=== PATIENT | male | born 1965 | race Caucasian/White ===

== ENCOUNTER → 2020-12-05 07:57 | Outpatient (BNVA) | payer BC, SELFPAY | PROVIDERS: PCP Internal Medicine; Visit Provider Physician Assistant ==

== ENCOUNTER 2021-01-11 09:49 | Day surgery (SDC) | payer BC, SELFPAY ==
[2021-01-04 15:05] VITALS: BMI 29.7
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
[2021-01-11 10:00] VITALS: BP 131/91; PULSE 82; RESP 16; TEMP 36.6; O2SAT 98
[2021-01-11] MEDS: Lactated Ringers 1,000 ML 100 ML IVCONT (10:18)
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
[2021-01-11 11:06] VITALS: BP 118/74; PULSE 75; RESP 16; TEMP 36.1; O2SAT 96
[2021-01-11 11:22] VITALS: BP 133/98; PULSE 74; RESP 18; TEMP 36.1; O2SAT 100
--- NOTE | 2021-01-12 13:04 | W.PM.OPN ---
Operative Note Operative Note Date of Service: 01/11/21 Narrative: Pre-op diagnosis: colon cancer screening, hx of colon polyps, FH of colon polyps Post-op diagnosis: other (Colon polyps, diverticulosis, hemorrhoids) Procedure: COLONOSCOPY TILL CECUM WITH SNARE POLYPECTOMY AND SUBMUCOSAL INJECTION Consent: Indications for the procedure and potential complications of bleeding, perforation, reaction to medications and missed diagnosis were discussed with the patient and informed consent was obtained. Instrument: Olympus PCF H 190 L variable stiffness pediatric colonoscope Monitoring: Vital signs and clinical assessment, intermittent blood pressure monitoring, continuous EKG monitoring, Pulse oximetry and Carbon Dioxide monitoring were done throughout the procedure. Colon withdrawl time was 18 minutes. Procedure: The patient was placed in the left lateral decubitis position and pre-procedure medications were administered. After a digital rectal examination of the ano-rectum, the video colonoscope was inserted into the rectum and advanced through the colon to the cecum. The colonoscope was slowly withdrawn in a retrograde panoramic fashion and the colon mucosa was carefully examined including a retroflexed view of the rectum. Findings and interventions are described below. Procedure Difficulty: Without difficulty Findings: Terminal Ileum: Not evaluated Cecum: A 15-18 mm flat polyp in the cecum below the appendicular orifice. Polyp was raised with 7 cc of Orise solution and removed with a hot snare. Ascending Colon: Normal Transverse Colon: Normal Descending Colon: Moderate diverticulosis Sigmoid Colon: A 7-8 mm sessile polyp removed with a cold snare and polyp was not retrieved. Moderate diverticulosis Rectum: Normal Ano-rectum: Moderate internal hemorrhoids Colon preparation: Good Impression and Post Procedure Diagnosis: Colonoscopy Findings: Two small to medium sized polyps removed - one polyp was not retrieved. Moderate diverticulosis seen in the left colon Moderate hemorrhoids on retroflexed exam. Plan: Await pathology results Patient has an appointment on 02/21/21 in the GI Clinic with FERMÍN Maldonado. Repeat Colonoscopy interval based on path results - in 2 years if cecal polyp is adenomatous. Above findings were reviewed with the patient and colon polyps handoutwas given in the discharge area Surgeon: Delmi Cagle MD Anesthesia: MAC (Dr Davies) Was an Mounted Police Officer used for this Procedure?: Yes Mounted Police Officer: Dequan Blake Estimated blood loss (mL): 0 Pathology: other (A- CECAL POLYP O-RISE USED) Condition: stable Disposition: PACU
== END 2021-01-11 11:47 | disposition home or self-care (01) ==
PROVIDERS: PCP Internal Medicine; Visit Provider Internal Medicine Gastroenterology
PROC: 0DJD8ZZ Inspection of Lower Intestinal Tract, Via Natural or Artificial Opening Endoscopic (ICD-10-PCS; CPT 45378; principal; 2021-01-11 11:10)
DX: Z12.11 Encounter for screening for malignant neoplasm of colon (principal); Z86.010 Personal history of colon polyps; Z83.71 Family history of colonic polyps; D12.0 Benign neoplasm of cecum; K57.30 Diverticulosis of large intestine without perforation or abscess without bleeding; K64.8 Other hemorrhoids; G47.33 Obstructive sleep apnea (adult) (pediatric); Z79.899 Other long term (current) drug therapy; Z88.8 Allergy status to other drugs, medicaments and biological substances; K63.5 Polyp of colon
CPT/HCPCS: 45385; 45381; 88305

== ENCOUNTER → 2021-02-21 08:57 | Outpatient (BNVA) | payer BC, SELFPAY | PROVIDERS: PCP Internal Medicine; Visit Provider Physician Assistant ==

== ENCOUNTER 2021-06-12 07:50 | Outpatient (REF) | payer BC, SELFPAY ==
[2021-06-12 11:10] LABS: Hematocrit 47.2 % (42.0-52.0); Hemoglobin 15.9 g/dl (14.0-18.0); Mean Corpuscular HGB Conc 33.7 g/dl (31.0-36.0); Mean Corpuscular Hemoglobin 30.6 pg (27.0-33.0); Mean Corpuscular Volume 90.8 fL (80.0-98.0); Mean Platelet Volume 10.9 fL (9.4-12.4); Platelet Count 207 X10*3/uL (160-400); Red Cell Distribution Width 12.4 % (11.0-16.0); White Blood Count 6.3 X10*3/uL (4.8-10.8)
[2021-06-12 11:32] LABS: Alanine Aminotransferase 20 U/L (0-40); Albumin Level 4.3 g/dL (3.5-5.0); Alkaline Phosphatase 40 U/L (39-117); Anion Gap 11 (12-20); Aspartate Amino Transferase 18 U/L (5-37); Blood Urea Nitrogen 20 mg/dL (9-16); Calcium 9.8 mg/dL (8.4-10.2); Carbon Dioxide 29 mmol/L (22-29); Chloride 104 mmol/L (96-108); Cholesterol 184 mg/dL; Estimated Glomerular Filt Rate > 60; Glucose Fasting 90 mg/dL (60-99); HDL Cholesterol 41 mg/dL; LDL Cholesterol Calculated 114 mg/dl; Potassium 4.5 mmol/L (3.3-5.1); Sodium 139 mmol/L (135-145); Total Protein 7.1 g/dL (6.5-8.0); Triglycerides 149 mg/dL
[2021-06-12 11:52] LABS: Thyroid Stimulating Hormone 1.49 uIU/mL (0.32-4.0)
== END 2021-06-12 07:51 | disposition home or self-care (01) ==
LOC: HO.MANLDS 07:50
PROVIDERS: PCP Internal Medicine; Visit Provider Internal Medicine
DX: R03.0 Elevated blood-pressure reading, without diagnosis of hypertension (principal)
CPT/HCPCS: 36415; 80053; 80061; 84443; 85027

== ENCOUNTER 2022-01-24 07:31 | Outpatient (REF) | payer BC, SELFPAY ==
[2022-01-24 11:07] LABS: MANUAL DIFF FLAG NO
[2022-01-24 11:25] LABS: Basophils Percent Auto 0.6 % (0-2); Eosinophils Absolute Auto 0.3 X10*3/uL (0.0-0.4); Eosinophils Percent Auto 4.7 % (0-4); Hematocrit 45.4 % (42.0-52.0); Hemoglobin 15.3 g/dl (14.0-18.0); Imm Gran Abs Auto 0.08 X10*3/uL (0.00-0.03); Imm Gran Pct Auto 1.2 % (0.0-0.4); Lymphocytes Absolute Auto 1.8 X10*3/uL (1.2-4.9); Lymphocytes Percent Auto 28.2 % (20-40); Mean Corpuscular HGB Conc 33.7 g/dl (31.0-36.0); Mean Corpuscular Hemoglobin 30.6 pg (27.0-33.0); Mean Corpuscular Volume 90.8 fL (80.0-98.0); Mean Platelet Volume 10.6 fL (9.4-12.4); Monocytes Absolute Auto 0.7 X10*3/uL (0.1-1.2); Neutrophils Absolute Auto 3.6 x10*3/uL (2.0-8.3); Neutrophils Percent Auto 55.3 % (45-73); Platelet Count 207 X10*3/uL (160-400); Red Cell Distribution Width 12.8 % (11.0-16.0); White Blood Count 6.5 X10*3/uL (4.8-10.8)
[2022-01-24 11:35] LABS: Alanine Aminotransferase 19 U/L (0-40); Albumin Level 4.2 g/dL (3.5-5.0); Alkaline Phosphatase 37 U/L (39-117); Anion Gap 12 (12-20); Aspartate Amino Transferase 18 U/L (5-37); Bilirubin Total 0.6 mg/dL (0.0-1.0); Blood Urea Nitrogen 19 mg/dL (9-16); Calcium 8.9 mg/dL (8.4-10.2); Carbon Dioxide 26 mmol/L (22-29); Chloride 105 mmol/L (96-108); Cholesterol 174 mg/dL; Estimated Glomerular Filt Rate > 60; Glucose Fasting 95 mg/dL (60-99); HDL Cholesterol 44 mg/dL; LDL Cholesterol Calculated 109 mg/dl; Potassium 4.3 mmol/L (3.3-5.1); Sodium 139 mmol/L (135-145); Total Protein 6.7 g/dL (6.5-8.0); Triglycerides 106 mg/dL
[2022-01-24 11:59] LABS: Prostate Specific Antigen 0.67 ng/mL (<0.05-4.0); Vitamin D 25-OH Total 29.6 ng/mL (>30)
== END 2022-01-24 07:32 | disposition home or self-care (01) ==
LOC: HO.MANLDS 07:31
PROVIDERS: Visit Provider Internal Medicine
DX: Z00.01 Encounter for general adult medical examination with abnormal findings (principal); Z12.5 Encounter for screening for malignant neoplasm of prostate
CPT/HCPCS: 36415; 80053; 80061; 82306; 84153; 85025

== ENCOUNTER 2023-05-01 07:25 | Day surgery (SDC) | payer OTHER, SELFPAY ==
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
--- OUTSIDE RECORDS SUMMARY | 2023-05-01 07:27 | XMS_ITS | Continuity of Care Document ---
Author Name Unknown Organization [facility] er Address [address] [place] [address]- Care Team Providers Care Liquor Rectifier Name Role Phone Luke Barrientos DO Primary Care Physician Encounter [facility] Date(s): 06/29/19 - 07/06/[address] [address]- [facility] Attending Physician: Cassy Ortiz Admitting Physician: Cassy Ortiz Allergies, Adverse Reactions, Alerts Substance Reaction Severity Status NKA Active Medications Patient not on any medications at home 0, 0, 03/27/06 0:09:05, Current med (Hx), Patient not on any medications at home Start Date: 03/27/06 Status: Ordered
--- OUTSIDE RECORDS SUMMARY | 2023-05-01 07:27 | XMS_ITS | Continuity of Care Document ---
Author Name Unknown Organization [facility] Address [address] [place] [address]- Care Team Providers Care Marine Consultant Name Role Phone Luke Barrientos DO Primary Care Physician [phone] Encounter [facility] Date(s): 10/21/21 - 11/20/21 [facility] [address] [place] [address]- Allergies, Adverse Reactions, Alerts No Known Allergies Medications Patient not on any medications at home 0, 0, 03/27/06 0:09:05, Current med (Hx), Patient not on any medications at home Start Date: 03/27/06 Status: Ordered
--- OUTSIDE RECORDS SUMMARY | 2023-05-01 07:27 | XMS_ITS | Continuity of Care Document ---
Author Name Unknown Organization [facility] er Address [address] [place] [address]- Care Team Providers Care Electronic Musical Instrument Repairer Name Role Phone Luke Barrientos DO Primary Care Physician [phone] Encounter [facility] Date(s): 09/08/19 - 09/18/[address] [address]- [facility] Attending Physician: Megha Wilkins Admitting Physician: Megha Wilkins Referring Physician: trMegha Allergies, Adverse Reactions, Alerts Substance Reaction Severity Status NKA Active Medications Patient not on any medications at home 0, 0, 03/27/06 0:09:05, Current med (Hx), Patient not on any medications at home Start Date: 03/27/06 Status: Ordered
--- OUTSIDE RECORDS SUMMARY | 2023-05-01 07:27 | XMS_ITS | Continuity of Care Document ---
Author Name Unknown Organization [facility] er Address [address] [address]- Care Team Providers Care Production Truck Driver Name Role Phone Luke Barrientos DO Primary Care Physician [phone] Encounter [facility] Date(s): 04/26/19 - 06/05/[address] [address]- [facility] Attending Physician: Cassy Ortiz Admitting Physician: Cassy Ortiz Allergies, Adverse Reactions, Alerts Substance Reaction Severity Status NKA Active Medications Patient not on any medications at home 0, 0, 03/27/06 0:09:05, Current med (Hx), Patient not on any medications at home Start Date: 03/27/06 Status: Ordered
--- OUTSIDE RECORDS SUMMARY | 2023-05-01 07:27 | XMS_ITS | Continuity of Care Document ---
Author Name Unknown Organization [facility] er Address [address] [place] [address]- Care Team Providers Care Double Backer Name Role Phone Luke Barrientos DO Primary Care Physician Encounter [facility] Date(s): 06/08/19 - 06/15/[address] [address]- [facility] Attending Physician: Cassy Ortiz Admitting Physician: Cassy Ortiz Allergies, Adverse Reactions, Alerts Substance Reaction Severity Status NKA Active Medications Patient not on any medications at home 0, 0, 03/27/06 0:09:05, Current med (Hx), Patient not on any medications at home Start Date: 03/27/06 Status: Ordered
--- OUTSIDE RECORDS SUMMARY | 2023-05-01 07:27 | XMS_ITS | Continuity of Care Document ---
Author Name Unknown Organization [facility] er Address [address] [place] [address]- Care Team Providers Care Supervisor Sheet Manufacturing Name Role Phone Luke Barrientos DO Primary Care Physician [phone] Encounter [facility] Date(s): 06/08/19 - 06/18/[address] [address]- [facility] Attending Physician: Megha Wilkins Admitting Physician: Megha Wilkins Referring Physician: AdmtrMegha Allergies, Adverse Reactions, Alerts Substance Reaction Severity Status NKA Active Medications Patient not on any medications at home 0, 0, 03/27/06 0:09:05, Current med (Hx), Patient not on any medications at home Start Date: 03/27/06 Status: Ordered
--- OUTSIDE RECORDS SUMMARY | 2023-05-01 07:27 | XMS_ITS | Continuity of Care Document ---
Author Name Unknown Organization [facility] er Address [address] [place] [address]- Care Team Providers Care Accountant Bookkeeper Name Role Phone Luke Barrientos DO Primary Care Physician Encounter [facility] Date(s): 09/08/19 - 09/15/[address] [address]- [facility] Attending Physician: Cassy Ortiz Admitting Physician: Cassy Ortiz Allergies, Adverse Reactions, Alerts Substance Reaction Severity Status NKA Active Medications Patient not on any medications at home 0, 0, 03/27/06 0:09:05, Current med (Hx), Patient not on any medications at home Start Date: 03/27/06 Status: Ordered
--- OUTSIDE RECORDS SUMMARY | 2023-05-01 07:27 | XMS_ITS | Continuity of Care Document ---
Author Name Unknown Organization [facility] er Address [address] [place] [address]- Care Team Providers Care Tenant Relations Coordinator Name Role Phone Luke Barrientos DO Primary Care Physician Encounter [facility] Date(s): 07/28/19 - 08/04/[address] [address]- [facility] Attending Physician: Cassy Ortiz Admitting Physician: Cassy Ortiz Allergies, Adverse Reactions, Alerts Substance Reaction Severity Status NKA Active Medications Patient not on any medications at home 0, 0, 03/27/06 0:09:05, Current med (Hx), Patient not on any medications at home Start Date: 03/27/06 Status: Ordered
--- OUTSIDE RECORDS SUMMARY | 2023-05-01 07:27 | XMS_ITS | Continuity of Care Document ---
Author Name Unknown Organization [facility] er Address [address] [place] [address]- Care Team Providers Care Apprentice Carpenter Name Role Phone Luke Barrientos DO Primary Care Physician Encounter [facility] Date(s): 07/14/19 - 07/21/[address] [address]- [facility] Attending Physician: Cassy Ortiz Admitting Physician: Cassy Ortiz Allergies, Adverse Reactions, Alerts Substance Reaction Severity Status NKA Active Medications Patient not on any medications at home 0, 0, 03/27/06 0:09:05, Current med (Hx), Patient not on any medications at home Start Date: 03/27/06 Status: Ordered
--- OUTSIDE RECORDS SUMMARY | 2023-05-01 07:27 | XMS_ITS | Continuity of Care Document ---
Author Name Unknown Organization [facility] er Address [address] [place] [address]- Care Team Providers Care Assembler Tester Name Role Phone Luke Barrientos DO Primary Care Physician Encounter [facility] Date(s): 05/30/19 - 06/06/[address] [address]- [facility] Attending Physician: Cassy Ortiz Admitting Physician: Cassy Ortiz Allergies, Adverse Reactions, Alerts Substance Reaction Severity Status NKA Active Medications Patient not on any medications at home 0, 0, 03/27/06 0:09:05, Current med (Hx), Patient not on any medications at home Start Date: 03/27/06 Status: Ordered
--- OUTSIDE RECORDS SUMMARY | 2023-05-01 07:27 | XMS_ITS | Continuity of Care Document ---
Author Name Unknown Organization [facility] er Address [address] [place] [address]- Care Team Providers Care Director Internal Audit Name Role Phone Luke Barrientos DO Primary Care Physician Encounter [facility] Date(s): 07/14/19 - 09/24/[address] [address]- [facility] Attending Physician: Cassy Ortiz Admitting Physician: Cassy Ortiz Allergies, Adverse Reactions, Alerts Substance Reaction Severity Status NKA Active Medications Patient not on any medications at home 0, 0, 03/27/06 0:09:05, Current med (Hx), Patient not on any medications at home Start Date: 03/27/06 Status: Ordered
[2023-05-01 07:46] VITALS: BP 145/94; PULSE 78; RESP 16; TEMP 36.5
[2023-05-01 07:56] VITALS: BMI 29.2
[2023-05-01] MEDS: Lactated Ringers 1,000 ML 100 ML IVCONT (08:08)
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
--- NOTE | 2023-05-01 08:27 | W.PM.OPN ---
Operative Note Operative Note Date of Service: 05/01/23 Narrative: COLONOSCOPY TILL CECUM WITH BIOPSIES AND SNARE POLYPECTOMY Pre-op diagnosis: Surveillance for colon polyps Post-op diagnosis:? Colon polyps, diverticulosis, hemorrhoids Endoscopist:? Delmi Cagle MD Anesthesia:?MAC Consent: Indications for the procedure and potential complications of bleeding, perforation, reaction to medications and missed diagnosis were discussed with the patient and informed consent was obtained. Instrument: Olympus CF H 190 L variable stiffness adult colonoscope Monitoring: Vital signs and clinical assessment, intermittent blood pressure monitoring, continuous EKG monitoring, Pulse oximetry and Carbon Dioxide monitoring were done throughout the procedure. Please see anesthesia flowsheet. Colon withdrawl time was 15 minutes. Procedure: The patient was placed in the left lateral decubitis position and pre-procedure medications were administered. After a digital rectal examination of the ano-rectum, the video colonoscope was inserted into the rectum and advanced through the colon to the cecum. The colonoscope was slowly withdrawn in a retrograde panoramic fashion and the colon mucosa was carefully examined including a retroflexed view of the rectum. Findings and interventions are described below. Procedure Difficulty: Without difficulty Findings: Terminal Ileum: Not evaluated Cecum: Normal Ascending Colon: Normal Transverse Colon: Normal Descending Colon: Normal Sigmoid Colon: A 7 to 8 mm sessile polyp - removed with a cold snare. Residual polyp was removed with a cold biopsy. Moderate diverticulosis Rectum: Normal Ano-rectum: Moderate internal hemorrhoids Colon preparation: Excellent Impression and Post Procedure Diagnosis: Colonoscopy Findings: One small polyp removed Moderate diverticulosis seen in the sigmoid colon Moderate hemorrhoids on retroflexed exam. Plan: I will send a letter with pathology results Repeat Colonoscopy interval based on path results - in 5 years if polyps are adenomatous and due to a hx of adenomatous colon polyps. Above findings were reviewed with the patient and colon polyps and diverticulosis handouts were given in the discharge area
[2023-05-01 09:16] VITALS: BP 131/60; PULSE 90; RESP 16; TEMP 36.7; O2SAT 93
[2023-05-01 09:31] VITALS: BP 131/60; PULSE 90; RESP 16; TEMP 36.5; O2SAT 98
== END 2023-05-01 10:10 | disposition home or self-care (01) ==
PROVIDERS: PCP Internal Medicine; Visit Provider Internal Medicine Gastroenterology
PROC: 0DJD8ZZ Inspection of Lower Intestinal Tract, Via Natural or Artificial Opening Endoscopic (ICD-10-PCS; CPT 45378; principal; 2023-05-01 08:30)
DX: Z12.11 Encounter for screening for malignant neoplasm of colon (principal); Z86.010 Personal history of colon polyps; D12.5 Benign neoplasm of sigmoid colon; K57.30 Diverticulosis of large intestine without perforation or abscess without bleeding; K64.8 Other hemorrhoids; E78.00 Pure hypercholesterolemia, unspecified; D75.A Glucose-6-phosphate dehydrogenase (G6PD) deficiency without anemia; G47.33 Obstructive sleep apnea (adult) (pediatric); L40.9 Psoriasis, unspecified; Z79.899 Other long term (current) drug therapy; Z88.8 Allergy status to other drugs, medicaments and biological substances
CPT/HCPCS: 45385; 45380; 88304; J2250; J2704

== ENCOUNTER → 2023-05-01 07:25 | Outpatient (BNV) | payer OTHER, SELFPAY | PROVIDERS: PCP Internal Medicine; Visit Provider Internal Medicine Gastroenterology | DX: Z12.11 Encounter for screening for malignant neoplasm of colon (principal); Z86.010 Personal history of colon polyps; D12.5 Benign neoplasm of sigmoid colon; K57.30 Diverticulosis of large intestine without perforation or abscess without bleeding | CPT/HCPCS: 45385 ==

== ENCOUNTER 2023-09-16 06:59 | Outpatient (REF) | payer OTHER, SELFPAY ==
--- NOTE | ~2023-09-16 | FL_ITS ---
EXAMINATION: XR FLUOROSCOPY UPPER GI WITH AIR CLINICAL INFORMATION: Dysphagia. Reflux COMPARISON: None TECHNIQUE: Fluoroscopic air contrast upper GI examination was performed utilizing standard techniques with thin and thick barium and effervescent granules. Numerous spot images were obtained. FINDINGS: Lateral cine images of the oropharynx and hypopharynx demonstrate normal swallow mechanism with normal epiglottic inversion and soft palate elevation. There is trace laryngeal penetration with thick barium. No glottic or subglottic aspiration identified. No nasopharyngeal reflux present. There is abnormal appearance of the anterior hypopharynx just inferior to the vallecula that fills and empties with barium (RF 1-3; image 14 of 97). This may represent a ventral hypopharyngeal diverticulum, or unusual hypopharyngeal web. Technically this could also be obliquity and visualization of the contralateral piriform sinus. There was no significant cricopharyngeal achalasia. Dual and single contrast images of the esophagus demonstrate normal caliber, contour, and mucosal pattern. No evidence of stricture, mass, or ulcerations identified. Esophageal peristalsis is mildly disorganized. A wide open, nonobstructing Schatzki's ring is present. No evidence of hiatus hernia identified. No significant gastroesophageal reflux was seen during the course of the examination and on reflux views. Dual contrast and single contrast images of the stomach demonstrated a normal contour. The gastric rugal folds appear mildly thickened. No masses or ulcerations are seen. Contrast freely passed into the gastric antrum and duodenal bulb without delay. Single and air-contrast images of the duodenal bulb demonstrate no abnormality. The duodenal sweep has a normal appearance, course, and mucosal fold appearance. The imaged proximal jejunum has a normal fold pattern and caliber. FLUOROSCOPY TIME: 3 minutes 54 seconds Number of Spot Images: 14 Number of Cine: 5 DOSE AREA PRODUCT: 2639 uGy-m2 (microgray-meter squared) FL/FL upper GI w air IMPRESSION: 1. Trace laryngeal penetration with thick barium. No glottic or subglottic aspiration. 2. Abnormal appearing structure in the anterior hypopharynx just inferior to the vallecula that empties and fills with barium. This may represent a ventral diverticulum or hypopharyngeal web. Technically this could also be obliquity and visualization of the contralateral piriform sinus. Recommend Direct visualization or endoscopic evaluation. 3. Mildly disorganized esophageal peristalsis. 4. A wide-open nonobstructing Schatzki's ring is present. 5. Thickened gastric rugal folds that likely represent gastritis. This procedure was performed by Neno Stanford PA-C, and supervised by Dr. Penaloza
[2023-09-16 07:14] LABS: MANUAL DIFF FLAG NO
[2023-09-16 07:44] LABS: Basophils Absolute Auto 0.1 X10*3/uL (0.0-0.2); Basophils Percent Auto 0.6 % (0-2); Eosinophils Absolute Auto 0.7 X10*3/uL (0.0-0.4); Eosinophils Percent Auto 7.2 % (0-4); Hematocrit 47.2 % (42.0-52.0); Imm Gran Abs Auto 0.04 X10*3/uL (0.00-0.03); Imm Gran Pct Auto 0.4 % (0.0-0.4); Lymphocytes Absolute Auto 1.9 X10*3/uL (1.2-4.9); Lymphocytes Percent Auto 19.5 % (20-40); Mean Corpuscular HGB Conc 33.9 g/dl (31.0-36.0); Mean Corpuscular Hemoglobin 30.2 pg (27.0-33.0); Mean Corpuscular Volume 89.1 fL (80.0-98.0); Mean Platelet Volume 10.3 fL (9.4-12.4); Monocytes Absolute Auto 0.9 X10*3/uL (0.1-1.2); Monocytes Percent Auto 8.8 % (2-11); Neutrophils Absolute Auto 6.3 x10*3/uL (2.0-8.3); Neutrophils Percent Auto 63.5 % (45-73); Platelet Count 220 X10*3/uL (160-400); Red Cell Distribution Width 12.7 % (11.0-16.0); White Blood Count 9.9 X10*3/uL (4.8-10.8)
[2023-09-16 07:45] LABS: Alanine Aminotransferase 18 U/L (0-40); Albumin Level 4.3 g/dL (3.5-5.0); Alkaline Phosphatase 37 U/L (39-117); Anion Gap 7 (12-20); Aspartate Amino Transferase 16 U/L (5-37); Bilirubin Total 0.8 mg/dL (0.0-1.0); Blood Urea Nitrogen 19 mg/dL (9-16); Calcium 9.3 mg/dL (8.4-10.2); Carbon Dioxide 30 mmol/L (22-29); Chloride 106 mmol/L (96-108); Cholesterol 234 mg/dL (<200); Estimated Glomerular Filt Rate > 60; Glucose Random 95 mg/dL (60-115); HDL Cholesterol 41 mg/dL (>40); LDL Cholesterol Calculated 164 mg/dL (<100); Potassium 4.4 mmol/L (3.3-5.1); Sodium 139 mmol/L (135-145); Total Protein 7.1 g/dL (6.5-8.0); Triglycerides 148 mg/dL (<150)
[2023-09-16 08:05] LABS: Prostate Specific Antigen 0.98 ng/mL (<0.05-4.0)
== END 2023-09-16 07:00 | disposition home or self-care (01) ==
LOC: HO.XRAY 06:59
PROVIDERS: PCP Internal Medicine; Visit Provider Internal Medicine
DX: Z00.00 Encounter for general adult medical examination without abnormal findings (principal); Z12.5 Encounter for screening for malignant neoplasm of prostate; Z13.6 Encounter for screening for cardiovascular disorders; R13.19 Other dysphagia
CPT/HCPCS: 36415; 74246; 80053; 80061; 84153; 85025

== ENCOUNTER → 2023-09-16 07:16 | Outpatient (BNV) | payer OTHER, SELFPAY | PROVIDERS: PCP Internal Medicine; Visit Provider Physician Assistant Surgical | DX: R13.10 Dysphagia, unspecified (principal); K21.9 Gastro-esophageal reflux disease without esophagitis | CPT/HCPCS: 74246 ==

== ENCOUNTER 2024-08-12 08:00 | Outpatient (REF) | payer OTHER, SELFPAY ==
--- OUTSIDE RECORDS SUMMARY | 2024-08-12 08:04 | XMS_ITS | Continuity of Care Document ---
Author Organization [facility] Address [address] [place] [id number]- Care Team Providers Care Material Stress Tester Name Role Phone Luke Barrientos DO Primary Care Physician [phone] Encounter [facility] Date(s): 07/21/24 - 07/21/[address] [address]- Discharge Disposition: A-D/C Home Attending Physician: Baudilio Nix DO Admitting Physician: Baudilio Nix DO Referring Physician: Not on Staff, Referring MD Encounter Type: Disch ES Allergies, Adverse Reactions, Alerts Substance Criticality Severity Reaction Reaction Severity Status sulfa drugs Active NSAIDs Active Medications Patient not on any medications at home Patient not on any medications at home, 0 Refills, 03/27/06 12:09:05 AM EDT Start Date: 03/27/06 Status: Ordered Repeat number: 1 Problem List Condition Confirmation Course Effective Dates Status Health [facility] Informant Obese class I Confirmed Active Results Radiology Reports * Exam Date Time Procedure Performing Provider Status 07/21/24 2:38 PM Chest 2 Views Frontal and Lat Lainey Grissom; Auth (Verified) Notes: (Chest 2 Views Frontal and Lat) Reason For Exam: Angina RESULT: Chest 2 Views Frontal and Lat PROCEDURE: Chest 2 Views Frontal and Lat INDICATION: 59 years old Male with Hx of Present Illness: chest pressure, high blood pressure sent in by employer; Reason: Angina; Clinical Question(s): CHF. COMPARISON: Chest radiographs 2005. FINDINGS: PA and lateral upright views of the chest obtained. Two PA views required for complete evaluation. Lines and tubes:None. Lungs and pleura: Lungs are clear. No pleural effusions.No evidence of pneumothorax. Heart, mediastinum and kishan: The cardiomediastinal silhouette and pulmonary vasculature are unremarkable. No cardiomegaly or pulmonary venous hypertension. Bones and soft tissues: Very mild degenerative changes in the thoracic spine. IMPRESSION: 1. No evidence of acute cardiopulmonary disease. Thank you for allowing me to participate in the care of this patient. WSN: [id number] Ordering Physician: Shiva Viveros Dictated By: John Hudson MD Dictated Date/Time: 07/21/24 2:49 pm Reviewed By: John Hudson MD Signed By: John Hudson MD Signed Date/Time: 07/21/24 2:49 pm Transcribed By: ALVARADO Transcribed Date/Time: 07/21/24 2:48 pm Vital Signs Most recent to oldest [Reference Range]: 1 2 3 Height 183 cm (07/21/24 2:18 PM) 183 cm (07/21/24 11:31 AM) 183 cm (07/21/24 11:09 AM) Weight 101.6 kg (07/21/24 2:18 PM) 101.6 kg (07/21/24 11:31 AM) 101.6 kg (07/21/24 11:09 AM) Oxygen Saturation [94-100 %] 99 % (07/21/24 3:56 PM) 100 % (07/21/24 2:18 PM) 98 % (07/21/24 11:09 AM) Pulse Rate [55-90 bpm] 75 bpm (07/21/24 3:56 PM) 74 bpm (07/21/24 2:18 PM) 78 bpm (07/21/24 11:09 AM) Body Mass Index [18.5-24.99 kg/m2] 30.34 kg/m2 *>HHI* (07/21/24 2:18 PM) 30.34 kg/m2 *>HHI* (07/21/24 11:09 AM) Blood Pressure [90-138/55-84 mm Hg] 149/101mm Hg *H* (07/21/24 3:56 PM) 162/106mm Hg *H* (07/21/24 2:18 PM) 152/93mm Hg *H* (07/21/24 11:09 AM) Respiratory Rate [16-30 br/min] 16 br/min (07/21/24 3:56 PM) 16 br/min (07/21/24 2:18 PM) 18 br/min (07/21/24 11:09 AM) Temperature [96.8-100.4 DegF] 98.1 DegF (07/21/24 3:56 PM) 98.8 DegF (07/21/24 2:18 PM) 98.0 DegF (07/21/24 11:09 AM) Mode of Delivery (Oxygen) Room air (07/21/24 3:56 PM) Room air (07/21/24 2:18 PM) Blood pressure sites Arm, right (07/21/24 2:18 PM) Temperature Route Oral (07/21/24 3:56 PM) Oral (07/21/24 2:18 PM) Temporal (07/21/24 11:09 AM) Dry Weight 101.6 kg (07/21/24 2:18 PM) 101.6 kg (07/21/24 11:31 AM) 101.6 kg (07/21/24 11:09 AM) Weight Obtained Via Standing scale (07/21/24 11:31 AM) Note * Aide Saleem MD: PERFORM Event Display: Patient Education Leaflets Authored Date: [id number] Uncertain Causes of Chest Pain ?? [id number] Uncertain Causes of Chest Pain Chest pain can happen for a number of reasons. Sometimes the cause can't be found. If you've been checked by your health care provider and your??condition does not seem serious, and if your pain doesnot appear to be coming from your heart, your provider may recommend closely watching for any symptoms. Sometimes the signs of a serious problem take more time to appear. Many problems not related toyour heart can cause chest pain, such as: ??? Musculoskeletal problems. These include costochondritis (an inflammation of the tissues around the ribs that can occur from trauma or overuse injuries) and a strain of the chest wall muscles. ???Respiratory problems. These include pneumonia, collapsed lung (pneumothorax), and inflammation of the lining of the chest and lungs (pleurisy). ??? Gastrointestinal problems. These include esophagealreflux, heartburn, ulcers, and gallbladder disease. ??? Anxiety and panic disorders. ??? Nerve compression and inflammation. ??? Rare problems, such as aortic aneurysm or aortic dissection (a swelling of the large artery coming out of the heart or a tear in the wall of the artery), and pulmonary embolism (a blood clot in the lungs). Home care After your visit, make sure to: ??? Rest today, and stay away from strenuous activity. ??? Take anyprescribed medicine as directed. ??? Be aware of any chest pain that comes back, and notice any changes. ?? Follow-up care Follow up with your health care provider if you don't start to feel better within 24 hours, or as advised. ?? Call 911 Call 911 if you have: ??? A change in the type of pain. It may feel different, become more severe, last longer, or begin to spread into your shoulder, arm, neck, jaw, or back. ??? Shortness of breathor increased pain with breathing. ??? Weakness, dizziness, or fainting. ??? A rapid heartbeat. ??? A crushing feeling in your chest. ??? Coughing up more than a small amount of blood. ?? When to get medical advice Call your health care provider or get medical care right away if you have: ??? A cough with dark colored sputum (phlegm) or small amount of blood. ??? A fever of 100.4??F??(38??C) or higher, or as directed by your provider. ??? Swelling, pain, or redness in one leg. ?? Last Reviewed Date: 2024 ?? [id number] [employer]. All rights reserved. This information is not intended as a substitute for professional medical care. Always follow your healthcare professional's instructions. ?? Patient Care team information Care Team Personnel Name: Luke Barrientos DO Position: Reference Physician Member Role: PCP Address: [address] [place] [address] Internal Medicine [address] Telecom: Care Team Related Persons Name: MERISSA AVENDANO Insurance Providers Guarantor name: RAUDEL AVENDANO Health Plan Information #: 1 Payer: [employer] [facility] Member Number: [id number] Policy Number: NA Group Number: NA Health Plan Information #: 2 Payer: [employer] Member Number: [id number] Policy Number: NA Group Number: NA
--- OUTSIDE RECORDS SUMMARY | 2024-08-12 08:04 | XMS_ITS | Continuity of Care Document ---
Author Name [facility] Organization [facility] Care Team Providers Care Service Employee Name Role Phone [facility] Unavailable Unavailable Encounters Combined list of: 1) Encounters from [facility] Affairs facilities going backup to the last 18 months, not all VA inpatient encounters are included; 2) Encounters from the Department of [employer] facilities going backup to 280 months. Location Location Details Encounter Type Encounter Number Reason For Visit Attending Provider ADM Date DC Date Status Disposition Source [facility] Outpatient Encounter [id number] 06/10 [facility] [place] [facility] [place] Outpatient Encounter [id number] 06/27 [place] [facility] [place] [place] [facility]
--- OUTSIDE RECORDS SUMMARY | 2024-08-12 08:04 | XMS_ITS | Data Portability ---
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 MODERATE MUST MEET 2 OUT OF 3 ELEMENTS: PROBLEMS, DATA OR RISK ELEMENT 1: PROBLEMS ADDRESSED 1 OR MORE CHRONIC ILLNESS WITH EXACERBATION OR 2 OR MORE STABLE CHRONIC ILLNESSES OR 1 UNDIAGNOSED NEW PROBLEM OR 1 ACUTE ILLNESS W/SYMPTOMS OR 1 ACUTE COMPLICATED INJURY ELEMENT 2: DATA MUST MEET 1 OF 3 CATEGORIES CATEGORY 1: REVIEW OF PRIOR EXTERNAL NOTES, REVIEW OF RESULTS, ORDERING OF EACH TEST, ASSESSMENT REQUIRING INDEPENDENT HISTORIAN OR CATEGORY 2: INDEPENDENT INTERPRETATION OF TESTS BY ANOTHER PHYSICIAN OR SPECIALIST OR CATEGORY 3: DISCUSSION OF MGT OR TEST INTERPRETATION W/EXTERNAL PHYSICIAN OR SPECIALIST ELEMENT 3: RISK RISK OF COMPLICATIONS AND/OR MORBIDITY OR MORTALITY OF PATIENT MANAGEMENT PROVIDER MUST THOROUGHLY DOCUMENT EACH ELEMENT THAT IS COVERED Not available 03/19/2021 15:23:20 09/25/2023 09/25/2023 [id number] [place] [id number]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 REVIEW OF PRIOR EXTERNAL NOTES/RESULTS, ORDERING OF TEST(S) CATEGORY 2. ASSESSMENT REQUIRING INDEPENDENT HISTORIAN(S) INCLUDE WHO THE HISTORIAN IS AND RELATION TO PT AND WHY PT IS UNABLE TO GIVE COMPLETE HISTORY ELEMENT 3: RISK (LOW) RISK OF COMPLICATIONS AND/OR MORBIDITY OR MORTALITY OF PATIENT MANAGEMENT PROVIDER MUST THOROUGHLY DOCUMENT ALL OF THE ELEMENTS COVERED Not available 09/25/2023 16:08:24 Plan of Treatment Reminders Order Date Submit Date Provider Last Modified By Organization Details Last Modified Time Details Appointments ANNUAL EXAM 2025 09:30A M DR LOVELACE Not available Not available Not available Lab magnesium , serum or plasma 2024 025 [facility], [address] [place] [address], [id number], 07/26/2024 10:51:23 vitamin D, 25-hydrox y, total, serum 2024 025 [facility], [address] [place] [address], [id number], 07/26/2024 10:51:23 lipid panel, blood 2024 025 [facility], [address] [place] [address], [id number], 07/26/2024 10:51:23 CMP, serum or plasma 2024 025 [facility], [address] [place] [address], [id number], 07/26/2024 10:51:23 CBC w/ auto diff 2024 025 [facility], [address] [place] [address], [id number], 07/26/2024 10:51:23 PSA, serum or plasma 2024 025 [facility], [address] [place] [address], [id number], 07/26/2024 10:51:23 CMP, serum or plasma 2023 024 [facility], [address] [place] [address], [id number], 09/16/2023 11:08:45 CBC w/ auto diff 2023 024 [facility], [address] [place] [address], [id number], 07/21/2023 12:15:35 PSA, serum or plasma 2023 024 [facility], [address] [place] [address], [id number], 07/21/2023 12:15:36 lipid panel, blood 2023 024 [facility], [address] [place] [address], [id number], 07/21/2023 12:15:36 CMP, serum or plasma 2021 022 [facility], [address] [place] [address], [id number], 01/27/2022 11:36:42 lipid panel, blood 2021 022 [facility], [address] [place] [address], [id number], 01/27/2022 11:36:42 CBC w/ auto diff 2021 022 [facility], [address] [place] [address], [id number], 01/27/2022 11:36:42 PSA, serum or plasma 2021 022 [facility], [address] [place] [address], [id number], 01/27/2022 11:36:42 vitamin D, 25-hydrox y, total, serum 2021 022 [facility], [address] [place] [address], [id number], 01/27/2022 11:36:42 CMP, serum or plasma 2020 021 [facility], [address] [place] [address], [place], [address], 06/13/2021 11:20:00 lipid panel, serum 2020 021 [facility], [address] [place] [address], [id number], 06/13/2021 11:20:00 CBC 2020 021 [facility], [address] [place] [address], [id number], 06/13/2021 11:20:00 TSH, serum or plasma 2020 021 [facility], [address] [place] [address], [id number], 06/13/2021 11:20:00 Referral gastroent erologist referral 2023 [facility]24 [facility], [address] [place] [address], [id number], 09/30/2023 08:10:53 Procedures None recorded. Surgeries None recorded. Imaging CT, heart, w/o contrast, w/ coronary calcium score 2024 025 [facility], [address] [place], [address], 08/05/2024 09:44:47 RF, upper gastroint estinal tract, w/ contrast PO 2023 024 [facility] Central Scheduling, [address] [place] [address], [place], [address], 07/28/2023 10:35:42 Medication Orders lisinopri l 5 mg tablet 2024 025 [facility]/Pharmacy #[id number], [address] [facility], [place], [address], 07/26/2024 10:50:06 meloxicam 15 mg tablet 2023 024 [email or web address] [facility]/Pharmacy #0373, [address] [place], [address], 07/26/2024 10:17:23 mupirocin 2 % topical ointment 2023 024 [facility]acy #0373, [address] [place], [address], 07/21/2023 12:14:15 sildenafi l 50 mg tablet 2021 022 [facility]Pharmacy #0373, [address] [place], [address], 01/03/2022 14:05:38 doxycycli ne hyclate 100 mg tablet 2021 022 [facility]/Pharmacy #0373, [address] [place], [address], 07/21/2023 11:23:10 mupirocin 2 % topical ointment 2020 021 [facility] #0373, [address] [place], [address], 03/19/2021 16:08:02 Patient TargetsNo targets recorded. 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 [facility] Res[facility] Department [address] [place] [address], [id number], 01/03/2022 13:38:25 08/09/19 22 08/09/2021 XR, shoul marylin, 2 or more view No observ ation record ed. [address] Res[facility] Care Department [address] [place] [address], [id number], 01/03/2022 13:38:24 08/09/19 22 08/09/2021 XR, shoul marylin, 2 or more view No observ ation record ed. [address] Res[facility] Care Department [address] [place] [address], 35691, 01/03/2022 13:38:24 08/09/19 22 08/09/2021 XR, shoul marylin, 2 or more view No observ ation record ed. [address] [facility] Department [address] [place] [address], [id number], 01/03/2022 13:38:24 08/09/19 22 08/09/2021 XR, cervi basil spine , 4 or 5 view No observ ation record ed. [address] [facility] Department [address] [place] [address], [id number], 01/03/2022 13:38:24 08/09/19 22 08/09/2021 XR, cervi basil spine , 4 or 5 view No observ ation record ed. [address] [facility] Department [address] [place] [address], 99766, 01/03/2022 13:38:24 08/09/19 22 08/09/2021 XR, toe(s ), 2 or more view No observ ation record ed. [address] [facility] Department [address] [place] [address], 89949, 01/03/2022 13:38:24 08/09/19 22 08/09/2021 XR, lumbo sacra l spine , 2 or 3 view No observ ation record ed. [address] [facility] Department [address] [place] [address], 83940, 01/03/2022 13:38:24 08/09/19 22 08/09/2021 XR, toe(s ), 2 or more view No observ ation record ed. [address] [facility] Department [address] [place] [address], [id number], 01/03/2022 13:38:24 08/09/19 22 08/09/2021 XR, lumbo sacra l spine , 2 or 3 view No observ ation record ed. [address] [facility] Department [address] [place] [address], [id number], 01/03/2022 13:38:24 08/13/19 22 08/09/2021 XR, cervi basil spine , 2 or 3 view No observ ation record ed. [address] [facility] Department [address] [place] [address], 88931, 01/03/2022 13:38:24 08/13/19 22 08/09/2021 XR, shoul marylin, 2 or more view No observ ation record ed. [address] [facility] Department [address] [place] [address], 83331, 01/03/2022 13:38:24 08/13/19 22 08/09/2021 XR, shoul marylin, 2 or more view No observ ation record ed. [address] [facility] Department [address] [place] [address], [id number], 01/03/2022 13:38:23 08/13/19 22 08/09/2021 XR, shoul marylin, 2 or more view No observ ation record ed. [address] [facility] Department [address] [place] [address], 86813, 01/03/2022 13:38:23 08/13/19 22 08/09/2021 XR, cervi basil spine , 4 or 5 view No observ ation record ed. [address] [facility] [address] [place] [address], 46745, 01/03/2022 13:38:23 08/13/19 22 08/09/2021 XR, shoul marylin, 2 or more view No observ ation record ed. [address] [facility] Department [address] [place] [address], [id number], 01/03/2022 13:38:23 08/19/19 22 08/09/2021 XR, toe(s ), 2 or more view No observ ation record ed. [address] [facility] Department [address] [place] [address], 58519, 01/03/2022 13:38:23 08/19/19 22 08/09/2021 XR, lumba r spine , 2 view No observ ation record ed. [address] [facility] [address] [place] [address], 05894, 01/03/2022 13:38:23 08/19/19 22 08/09/2021 XR, lumba r spine , 2 view No observ ation record ed. [address] [facility] Department [address] [place] [address], 16793, 01/03/2022 13:38:23 08/19/19 22 08/09/2021 XR, toe(s ) No observ ation record ed. [address] [facility] Department [address] [place] [address], 82919, 01/03/2022 13:38:23 09/16/19 24 09/16/2023 RF, upper gastr ointe edd l tract , w/ contr ast PO No observ ation record ed. [facility] (Medical Records) [address] [place], [address], 09/18/2023 10:03:11 Result Notes None recorded. Problems Name Problem SNOMED Code Status Onset Date Resolution Date Notes Provider Name and Address Organization Details Recorded Time Psoriasi s 6200536 Active 2017 Not Available [facility] 20:23:59 Hyperten sive disorder 85018665 Completed 201712/28/2018 Luke Lovelace, DO [address] [place] [address], [address], [facility] 5 10:43:38 Hypercho lesterol emia 11550869 Active 2017 Not Available [facility] 20:23:59 Sleep apnea 13274117 Active 2017 Not Available [facility] 20:23:59 Vitamin D deficien cy 47660433 Active 2017 Not Available [facility] 20:23:59 Elevated blood-pr essure reading without diagnosi s of hyperten ivan 108216863 Active 2018 Not Available [facility] 20:23:59 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 2018 Not Available [facility] 20:23:59 Primary erectile dysfunct ion 054434031 Active 2021 Luek Lovelace DO [address] [place] [address], [address], [facility] 2 14:01:11 Follicul itis 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 2023 Luke Lovelace DO [address] [place] [address], [address], [facility] 4 12:05:12 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 Luke Lovelace DO [address] [place] [address], [address], [facility] 4 12:06:30 Allergic rhinitis 76490310 Active 2023 Luke Lovelace DO [address] [place] [address], [address], [facility] 4 12:07:46 Costal chondrit is 14403592 Active 2023 Luke Lovelace DO [address] [place] [address], [address], [facility] 4 12:09:00 Anemia 565802248 Active 2023 Luke Lovelace DO [address] [place] [address], [address], [facility] 4 12:10:59 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 41546207848 146963 Active 2023 Luke Lovelace DO [address] [place] [address], [address], [facility] 4 12:11:15 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 Luke Lovelace DO [address] [place] [address], [address], [facility] 4 23:03:32 Gastroes ophageal reflux disease 494129141 Active 2023 FERMÍN VALLES [address] [place] [address], [address], [facility] 4 10:03:38 Gastro-e sophagea l reflux disease with esophagi tis 997576997 Active 2023 Luke Lovelace DO [address] [place] [address], [address], [facility] 4 16:09:02 Esophage al web 46769491 Active 2023 Luke Lovelace DO [address] [place] [address], [address], [facility] 4 16:10:03 Hyperten sive disorder 71676989 Active 2024 Luke Lovelace DO [address] [place] [address], [address], [facility] 10:43:38 Eczema 57477867 Active 2024 Luke Lovelace DO [address] [place], [address], [facility] 10:52:27 Problem Notes None recorded. Procedures Surgical History Date Name Laterality Status Provider Name and Address Organization Details Recorded Time 05/01/20 Colonoscopy completed Luke Lovelace DO [address] [place], [address], [facility] 05/01/2023 17:22:35 Tonsillectomy completed Anne Viveros [facility] 09/08/2018 15:22:29 Imaging Results Imaging Date Name Status LastModified by Organization Details LastModified Time 08/09/2021 XR, shoulder, 2 or more view completed [address] [facility] Department [address] [place] [address], [id number], 01/03/2022 13:38:25 08/09/2021 XR, shoulder, 2 or more view completed [address] [facility] Department [address] [place] [address], 970[address], 01/03/2022 13:38:24 08/09/2021 XR, shoulder, 2 or more view completed [address] [facility] [address] [place] [address], 98919, 01/03/2022 13:38:24 08/09/2021 XR, shoulder, 2 or more view completed [address] [facility] [address] [place] [address], 12564, 01/03/2022 13:38:24 08/09/2021 XR, cervical spine, 4 or 5 view completed [address] [facility] [address] [place] [address], 79685, 01/03/2022 13:38:24 08/09/2021 XR, cervical spine, 4 or 5 view completed [address] [facility] [address] [place] [address], [id number], 01/03/2022 13:38:24 08/09/2021 XR, toe(s), 2 or more view completed [address] [facility] [address] [place] [address], 668[address], 01/03/2022 13:38:24 08/09/2021 XR, lumbosacral spine, 2 or 3 view completed [address] [facility] [address] [place] [address], [id number], 01/03/2022 13:38:24 08/09/2021 XR, toe(s), 2 or more view completed [address] [facility] [address] [place] [address], 733[address], 01/03/2022 13:38:24 08/09/2021 XR, lumbosacral spine, 2 or 3 view completed [address] [facility] [address] [place] [address], 65459, 01/03/2022 13:38:24 08/09/2021 XR, cervical spine, 2 or 3 view completed [address] [facility] [address] [place] [address], 93832, 01/03/2022 13:38:24 08/09/2021 XR, shoulder, 2 or more view completed [address] [facility] [address] [place] [address], 76866, 01/03/2022 13:38:24 08/09/2021 XR, shoulder, 2 or more view completed [address] [facility] [address] [place] [address], 06473, 01/03/2022 13:38:23 08/09/2021 XR, shoulder, 2 or more view completed [address] [facility] [address] [place] [address], 51423, 01/03/2022 13:38:23 08/09/2021 XR, cervical spine, 4 or 5 view completed [address] [facility] [address] [place] [address], 41205, 01/03/2022 13:38:23 08/09/2021 XR, shoulder, 2 or more view completed [address] [facility] [address] [place] [address], 030[address], 01/03/2022 13:38:23 08/09/2021 XR, toe(s), 2 or more view completed [address] [facility] [address] [place] [address], 89604, 01/03/2022 13:38:23 08/09/2021 XR, lumbar spine, 2 view completed [address] [facility] [address] [place] [address], 90682, 01/03/2022 13:38:23 08/09/2021 XR, lumbar spine, 2 view completed [address] [facility] [address] [place] [address], 78880, 01/03/2022 13:38:23 08/09/2021 XR, toe(s) completed [address] [facility] [address] [place] [address], 03990, 01/03/2022 13:38:23 09/16/2023 RF, upper gastrointestinal tract, w/ contrast PO completed [email or web address] (Medical Records) [address] [place], [address], 09/18/2023 10:03:11 Procedure Notes None recorded. Medical Equipment None Reported. Allergies Allergen ID Allergen Name Allergen Category Reaction Reaction Severity Criticality Documentation Date Start Date Code Code System Note Provider Name and Address Organization Details Recorded Time 2494 Substance with sulfonami de structure and antibacte rial mechanism of action (substanc e) medicatio n Not available Not available Not available 04/27/2018 41961 8008 SNOMED 2nd to G6PD Def. Anne Viveros nick, [facility] 8 08:30:36 7749 atorvasta tin medicatio n myalgias (muscle pain) Not available Not available 07/21/2023 26098 RxNorm Luke Lovelace, DO [address] [place], [address], [facility] 4 12:08:42 Medications Name Sig Start Date Stop Date Status Note LastModified by Organization Details LastModified Time desonide 0.05 % topical cream APPLY SPARINGLY AND RUB GENTLY INTO THE AFFECTED AREA TWICE A DAY active Not Available Not Available No t Available sildenafil 50 mg tablet TAKE 1 TABLET BY MOUTH EVERY DAY FOR 30 DAYS active Not Available Not Available No t Available atorvastati n 10 mg tablet TAKE 1 TABLET BY MOUTH EVERY DAY 09/24 completed Not Available Not Available Not Available meloxicam 15 mg tablet TAKE 1 TABLET BY MOUTH EVERY DAY FOR 30 DAYS 07/26 completed Not Available Not Available Not Available tramadol 50 mg tablet 04/27 completed Not Available Not Available Not Available desonide 0.05 % topical ointment APPLY SPARINGLY AND RUB GENTLY INTO THE AFFECTED AREA(S) BY TOPICAL ROUTE 2 TIMES PER DAY 09/03 completed Not Available Not Available Not Available omeprazole 20 mg capsule,del ayed release TAKE 1 CAPSULE BY MOUTH EVERY DAY FOR 90 DAYS active Not Available Not Available No t Available lisinopril 5 mg tablet TAKE 1 TABLET BY MOUTH EVERY DAY active Not Available Not Available No t Available mupirocin 2 % topical ointment APPLY A SMALL AMOUNT TO AFFECTED AREA 3 TIMES A DAY active Not Available Not Available No t Available doxycycline hyclate 100 mg tablet TAKE 1 TABLET BY MOUTH TWICE A DAY FOR 10 DAYS 07/21 completed Not Available Not Available Not Available naproxen 500 mg tablet 04/27 completed Not Available Not Available Not Available neomycin 3.5 mg/g-polymy prashant B 10,000 unit/g-dexa meth 0.1 % eye oint 04/27 completed Not Available Not Available Not Available Laxative (bisacodyl) 5 mg tablet,mirna yed release 10 MG ORALLY ONCE FOR 1 DAY TAKE AT NOON THE DAY BEFORE COLONOSCO PY 07/21 completed Not Available Not Available Not Available cholestyram ine (with sugar) 4 gram oral powder 09/02 completed Not Available Not Available Not Available Vitamin D active Not Available Not Sarahi ilable Not Available Gavilax 17 gram/dose oral powder 238 G ORALLY ONCE FOR 1 DAY TAKE DIRECTED BY MOUTH THE DAY BEFORE YOUR PROCEDURE . 07/21 completed Not Available Not Available Not Available Desitin Rapid Relief 13 % topical cream Apply 1 applicati on twice a day by topical route for 30 days. 09/03 completed Not Available Not Available Not Available Lotemax 0.5 % eye ointment 09/03 completed Not Available Not Available Not Available Clenpiq 10 mg-3.5 gram-12 gram/160 mL oral solution 12/28 completed Not Available Not Available Not Available Fluarix Quad 1408-0749 (PF) 60 mcg (15 mcg x 4)/0.5 mL IM syringe 04/27 completed Not Available Not Available Not Available Fluarix Quad (PF) 60 mcg (15 mcg x 4)/0.5 mL IM syringe 07/05 completed Not Available Not Available Not Available Vitals Date Recorded Body weight Body mass index (BMI) Body height Heart rate Oxygen saturation Oxygen saturation in Arterial blood by Pulse oximetry Systolic blood pressure Diastolic blood pressure Provider Name and Address Organization Details Last Updated DateTime 2 72192.3 8 g 30.1 kg/m2 179.07 cm 83 /min 98 % 98 % 144 mm[Hg] 82 mm[Hg] Luke Lovelace DO [address] [place], [address], [facility] 2 13:30:58 Date Recorded Body height Body mass index (BMI) Body weight Heart rate Oxygen saturation Oxygen saturation in Arterial blood by Pulse oximetry Systolic blood pressure Diastolic blood pressure Provider Name and Address Organization Details Last Updated DateTime 4 179.07 cm 30 kg/m2 51217.5 8 g 85 /min 98 % 98 % 122 mm[Hg] 88 mm[Hg] Luke Lovelace DO [address] [place], [address], [facility] 4 11:21:16 Date Recorded Body height Body mass index (BMI) Body weight Heart rate Oxygen saturation Oxygen saturation in Arterial blood by Pulse oximetry Systolic blood pressure Diastolic blood pressure Provider Name and Address Organization Details Last Updated DateTime 4 179.07 cm 30.1 kg/m2 58400.1 7 g 80 /min 97 % 97 % 130 mm[Hg] 80 mm[Hg] [facility] 4 15:28:50 Date Recorded Body height Body mass index (BMI) Body weight Heart rate Oxygen saturation Oxygen saturation in Arterial blood by Pulse oximetry Systolic blood pressure Diastolic blood pressure Provider Name and Address Organization Details Last Updated DateTime 5 179.07 cm 30.6 kg/m2 91963.9 5 g 78 /min 99 % 99 % 140 mm[Hg] 88 mm[Hg] Troy Puentes [facility] 5 10:19:24 Social History Question Answer Notes LastModified by Organizat ion Details LastModified Time Tobacco Smoking Status Never Smoker Not Available [facility] 04/24/2020 03:36:24 What Is Your Level Of Alcohol Consumption? Occasional [id number] Information not available 04/24/2020 Are You Blind Or Do You Have Difficulty Seeing? No [id number] Information not available 04/24/2020 What Is Your Level Of Caffeine Consumption? Moderate [id number] Information not available 04/24/2020 How Much Tobacco Do You Chew? None [id number] Information not available 04/24/2020 Are You Currently Employed? Yes [id number] Information not available 04/24/2020 Are You Deaf Or Do You Have Serious Difficulty Hearing? No [id number] Information not available 04/24/2020 What Type Of Diet Are You Following? REGULAR [id number] Information not available 04/24/2020 Which Illicit Or Recreational Drugs Have You Used? Never [id number] Information not available 04/24/2020 Education 2 Year College [email or web address] Informat ion not available 01/03/2022 What Is Your Occupation? [employer] Fe[employer] [id number] Information not available 04/24/2020 How Many Days Of Moderate To Strenuous Exercise, Like A Brisk Walk, Did You Do In The Last 7 Days? 1 [id number] Information not available 04/24/2020 On Those Days That You Engage In Moderate To Strenuous Exercise, How Many Minutes, On Average, Do You Exercise? 30 [id number] Information not available 04/24/2020 Hard Of Hearing Or Deaf In One Or Both Ears? No [email or web address] Information not available 01/03/2022 Live Alone Or With Others? With Others [email or web address] Information not available 01/03/2022 What Was The Date Of Your Most Recent Tobacco Screening? 07/26/2024 [email or web address] Information not available 07/26/2024 How Many Children Do You Have? 2 [id number] Information not available 04/24/2020 Performs Monthly Self-breast Exam? No [email or web address] Information no t available 01/03/2022 Seat Belts Used Routinely Yes [email or web address] Information not available 01/03/2022 Are You Sexually Active? Yes [id number] Information not available 04/24/2020 Smoke Alarm In Home Yes [email or web address] Information not available 01/03/2022 Are You Passively Exposed To Smoke? Yes [email or web address] Information no t available 09/08/2018 How Much Tobacco Do You Smoke? No [id number] Information not available 04/24/2020 General Stress Level Low [email or web address] Information not available 01/03/2022 Do You Use Sunscreen Routinely? No [id number] Information not available 04/24/2020 How Many Years Have You Smoked Tobacco? 0 [id number] Information not available 04/24/2020 Do You Or Have You Ever Used Any Other Forms Of Tobacco Or Nicotine? No Information not available 01/03/2022 Sex: Unknown Functional Status Question Answer Note LastModified by Organizat ion Details LastModified Time Do you have difficulty walking or climbing stairs? No [id number] Information not available 04/24/2020 Are you able to walk? YESWOREST [id number] Information not available 04/24/2020 Do you have difficulty doing errands alone? No [id number] Information not available 04/24/2020 Are you able to care for yourself? Yes [id number] Information not available 04/24/2020 Do you have difficulty dressing or bathing? No [id number] Information not available 04/24/2020 What is your exercise level? Moderate [id number] Information not available 04/24/2020 Mental Status Question Answer Note LastModified by Organization D etails LastModified Time Do you have difficulty concentrating, remembering or making decisions? No [id number] Information no t available 04/24/2020 Family History Relationship Description Onset Age of this Age Resolved Age Notes LastModified by Organization Details LastModified Time Mother Arthritis [email or web address] Not availabl e 09/08/2018 15:21:55 Mother Migraine [email or web address] Not available 09/08/2018 15:21:55 Brother Obese [email or web address] Not available 09/08/2018 15:21:56 Brother Sleep disorder [email or web address] Not available 2018 15:21:56 Brother Alcohol abuse tbalicki Not available 2018 15:21:56 Brother Obesity tbalicki Not available 09/08/2018 15:21:56 Medical History Condition Response Coronary Artery Disease N Other N Gout N Blood Diseases N Kidney Stones N Breast Cancer N Blood Transfusion N Lung Disease N Depression N COPD N Defects or Inherited Disease N Anxiety Disorder N Muscle, Joint, or Bone Problems N Obesity N Vision or Eye Problems N Arthritis N Infertility N Polyps N Mental Disorder N Cancer N Stroke N Varicosities N Endometriosis N Bladder or Kidney Problems N High Cholesterol Y Liver Disease N Fibromyalgia N Headaches N Kidney Disease N Allergies/Hayfever N Heart Problems N Hospitalizations N Thyroid Problems N GI Problems N Eating Disorder N Skin Problems Y Anemia N MRSA exposure N Constipation N Mental Illness N Diabetes N Ovarian Cancer N Seizures/Epilepsy N Tuberculosis N Congestive Heart Failure (CHF) N Eczema N Abuse/Domestic Violence N Diverticulitis N Asthma N Reflux/GERD N Hepatitis N Heart Disease N Pulmonary Embolism N Hypertension N Chicken Pox N Autism Spectrum Disorder (ASD) N Osteoporosis N Immunizations Vaccine Type Date Status Note Provider Nam e and Address Organization Details Recorded Time Influenza, split virus, quadrivalent, preservative 8 completed Mercedes romero [facility] 07/21/2023 11:15:49 influenza, unspecified formulation 3 completed Luke Lovelace, DO [address] [place] [address], [phone], [facility] 07/21/2023 11:19:37 Influenza, split virus, quadrivalent, preservative 9 completed Mercedes Gencarelle [facility] 07/21/2023 11:15:49 [facility]dap 0 [email or web address] 12:00:43 Influenza, split virus, quadrivalent, preservative 0 completed Mercedes Gencarelle [facility] 07/21/2023 11:15:49 COVID-19, mRNA, LNP-S, PF, 100 mcg/0.5mL dose or 50 mcg/0.25mL dose 1 completed Mercedes Gencarelle [facility] 07/21/2023 11:15:49 COVID-19, mRNA, LNP-S, PF, 100 mcg/0.5mL dose or 50 mcg/0.25mL dose 1 completed Mercedes Gencarelle [facility] 07/21/2023 11:15:49 Past Encounters Encounter ID Performer Location Encounter Start Date Encounter Closed Date Diagnosis/Indication Diagnosis SNOMED-CT Code Diagnosis ICD10 Code Diagnosis Note [id number] Lauren Quan NP, S [facility] [address], [place] [address] 04/27/2018 14:49:19 04/27/2018 15:57:42 Hypercholesterolemia 22696367 E78.00 will review and consider statin Vitamin D deficiency 347 73009 E55.9 Lumbago with sciatica 20 4496160 M54.41 Family his tory of cancer of colon 544979829 Z80.0 [id number] Lauren Quan NP, S [facility] [address], [place] [address] 09/08/2018 15:14:17 09/08/2018 16:30:26 Adult health examination 549538324 Z00.01 Active or passive immunization 102117358 Z23 Vitamin D deficiency 347 01602 E55.9 recheck Hypercholesterolemia 136 07723 E78.00 cont. lipitor 10 mg Hypertensive disorder 38 592845 I10 stable Psoriasis 1021283 L40.9 no current Multiple joint pain 3567 8005 M25.50 Painless r ectal bleeding 224650375 K62.5 Sleep apnea 84361698 G47 .30 defers treatment [id number] Lauren Quan NP, S [facility] [address],[place] [address] 09/20/2018 13:49:29 09/20/2018 15:30:41 Fatigue 64792049 R53.83 Pharyngitis 774185631 J0 2.9 [id number] Luke Lovelace [facility] [address],[place] [address] 12/28/2018 15:39:24 12/28/2018 16:25:15 Hypercholesterolemia 35613586 E78.00 will need lab soon to get a check on his cholestero l after taking the atorvastat Sleep apnea 42834968 G47 .30 that has been stable [id number] Luke Lovelace [facility] [address],[place] [address] 07/05/2019 15:51:24 07/05/2019 16:51:48 Hypercholesterolemia 83983002 E78.00 will need lab soon to get a check on his cholestero l after taking the atorvastat 10 mg Elevated blood-pressure reading without diagnosis of hypertension 418143123 R03.0 here and is doing great Psoriasis 3406459 L40.9 skin is doing ok except around the eyelid and ear canal Sleep apnea 60855121 G47 .30 that has been stable [id number] Luke Lovelace [facility] [address],[place] [address] 02/15/2020 14:53:16 02/15/2020 15:38:24 Elevated blood-pressure reading without diagnosis of hypertension 642060474 R03.0 here and is doing great and staying active no major issues Hypercholesterolemia 136 21741 E78.00 will need lab soon to get a check on his cholestero l after taking the atorvastat 10 mg as he did not get the lab yet [id number] Luke Lovelace DO [facility] [address],[place] [address] 09/03/2020 15:48:30 09/03/2020 16:44:55 Elevated blood-pressure reading without diagnosis of hypertension 732447195 R03.0 here and is doing great and staying active no major issues Hypercholesterolemia 136 23663 E78.00 will need lab soon to get a check on his cholestero l after taking the atorvastat 10 mg as he did not get the lab yet 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 Eczema 29860731 L30.9 otc maria luisa cream Strain of trapezius muscle 838928611 S46.811A will start doing some exercises and will have him slowly lift weight [id number] Luke Lovelace [facility] [address],[place] [address] 03/19/2021 08:16:03 03/19/2021 16:24:38 Elevated blood-pressure reading without diagnosis of hypertension 837653220 R03.0 here and is doing great and staying active no major issues Acute folliculitis 59945 7007 L73.9 [id number] Luke Lovelace [facility] [address] [place] [address] 01/03/2022 13:22:47 01/03/2022 14:35:15 Active or passive immunization 477787485 Z23 VAD Adult heal th examination 741808100 Z00.01 had a small tick bite on right upper thighwe removed but need to treat 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 Primary er ectile dysfunction 178167408 N52.9 Tick bite 29215604 W57.X XXA [id number] Luke Lovelace [facility] [address],[place] [address] 07/21/2023 11:14:52 07/21/2023 12:16:48 Active or passive immunization 623246250 Z23 UTD Adult heal th examination 945510331 Z00.00 had a small tick bite on right upper thighwe removed but need to treat Anemia 962559739 D55.0 chk lab Folliculitis 68570643 L7 3.9 Esophageal dysphagia 408 98011 R13.19 noted increased sx has had for years Allergic rhinitis 969441 04 J30.9 flonase nasal Costal chondritis 625341 04 M94.0 will try for several weeks Myalgia ca used by statin 2424893506 4693096 T46.6X5A if cholest still up will [facility]at [id number] [facility] [address] [place] [address] 09/25/2023 15:06:16 09/25/2023 16:20:54 Esophageal dysphagia 21327150 R13.19 noted increased sx has had for years Gastroesop hageal reflux disease 393050617 K21.9 Hypercholesterolemia 136 33054 E78.00 will need lab soon to get a check on his cholestero l after taking the atorvastat 10 mg as he did not get the lab yet Gastro-eso phageal reflux disease with esophagitis 431848163 K21.00 History of Schatzkis ring 1034481237 7890613 Z87.19 Esophageal web 32574900 Q39.4 will be seeing ent [id number] [facility] [address] [place] [address] 07/26/2024 10:06:14 07/26/2024 11:49:12 Hypercholesterolemia 88377286 E78.00 will need lab soon to get a check on his cholestero l after taking the atorvastat 10 mg as he did not get the lab yet Vitamin D deficiency 347 78630 E55.9 will chk Depression screening 171 264214 Z13.31 negative Active or passive immunization 838770510 Z23 UTD Adult heal th examination 851065601 Z00.00 elevated bp was a major concern Hypertensive disorder 38 197755 I10 bp at ER was 161 / 130 but was not treated Health Concerns Section Related Observation LastModified by Organization Detai ls LastModified Time None Recorded Concern Status LastModified by Organization Details LastModified Time None Recorded Advance Directives Directive None Recorded Payers Encounter Date Sequence Insurance Name Policy Number Policy [employer] Covered Member ID [employer] Member ID Guarantor Name 03/19/2021 1 [place] [facility] [id number] Nikkie Loco [id number] Suhail Hickeynne 01/03/2022 1 [place] [facility] ([facility] [id number] Nikkie Loco [id number] Suhail Beronica 07/21/2023 1 [facility] Suhail Yu Loco [id number] Suhail Loco 09/25/2023 1 [facility] Suhail Loco [id number] Suhail Loco 07/26/2024 1 [facility] Suhail Loco [id number] Suhail Loco Notes Date Note Type Note Provider Name and Address Organization Details Recorded Time 1 text/html patient is evaluated via tele/video assessment per patient consentduring current pandemic has noted a small follicular lesion just next to his belly button sore and irritatedotherwise is doing ok and has been checking a his bp 120/80s Luke Lovelace DO [address] [place] [address], [phone], [facility] 03/19/2021 16:08:15 2 text/html Annual WellnessReported bypatient.Diet and Nutrition:healthy diet Fracture Risk:no history of fractures; no recent explained fracture; no sudden unexplained fractures; no previous musculoskeletal injuries Physical Activity:exercises on a regular basis; recent increase in physical activity; good physical condition Additional Lifestyle Factors:no tobacco use; no alcohol intake; stopped drinking alcohol Depression Risk:never feels sad, empty, or tearful; no loss of interest in activities; no significant changes in weight; no sleep disturbances or insomnia; no agitation; no loss of energy; no feelings of worthlessness or guilt; no thoughts of suicide; no history of depression; no history of mood disorders Hearing:no loss of hearing Vision:no vision problems has had some [employer] disability things completed Luke Lovelace DO [address] [place] [address], [phone], [facility] 01/03/2022 14:07:22 4 text/html Annual WellnessReported bypatient.Diet and Nutrition:healthy diet Fracture Risk:no history of fractures; no recent explained fracture; no sudden unexplained fractures; no previous musculoskeletal injuries Physical Activity:exercises on a regular basis; recent increase in physical activity; good physical condition Additional Lifestyle Factors:no tobacco use; no alcohol intake; stopped drinking alcohol Depression Risk:never feels sad, empty, or tearful; no loss of interest in activities; no significant changes in weight; no sleep disturbances or insomnia; no agitation; no loss of energy; no feelings of worthlessness or guilt; no thoughts of suicide; no history of depression; no history of mood disorders Hearing:no loss of hearing Vision:no vision problems having a lot of muscle pain that seemed to get better with stopping the atorvastatinhe is still having joint pain [place] in the arms and elbows and anklehe is applying for gulf war syndromerelates he is having trouble with swallowing Luke Lovelace DO [address] [place] [address], [phone], [facility] 07/21/2023 12:17:49 4 text/html here for follow upreviewed lab in detailalso long detailed discussion re the UGI results showing esoph web and gastritis and schatzki ring Luke Lovelace DO [address] [place] [address], [phone], [facility] 09/25/2023 16:14:03 5 text/html here for physical but he has numerous issues was seen in ER last week for chest tightness and was eval and released Luke Lovelace DO [address] [place] [address], [phone], [facility] 07/26/2024 10:51:16
--- OUTSIDE RECORDS SUMMARY | 2024-08-12 08:05 | XMS_ITS | Continuity of Care Document ---
Author Organization [facility], [facility] Address [address] [address] [place] [address] Assessment No assessment recorded. Plan of Treatment Reminders Order Date Submit Date Provider Last Modified By Organization Details Last Modified Time Details Appointments ANNUAL EXAM 2025 09:30A M DR LOVELACE Not available Not available Not available Lab magnesium , serum or plasma 2024 025 [facility], [address] [place] [address], [id number], 07/26/2024 10:51:23 vitamin D, 25-hydrox y, total, serum 2024 025 [facility], [address] [place] [address], [id number], 07/26/2024 10:51:23 lipid panel, blood 2024 025 [facility], [address] [place] [address], [id number], 07/26/2024 10:51:23 CMP, serum or plasma 2024 025 [facility], [address] [place] [address], [id number], 07/26/2024 10:51:23 CBC w/ auto diff 2024 025 [facility], [address] [place] [address], [id number], 07/26/2024 10:51:23 PSA, serum or plasma 2024 025 [facility], [address], [place], [address], 07/26/2024 10:51:23 Referral None recorded. Procedures None recorded. Surgeries None recorded. Imaging CT, heart, w/o contrast, w/ coronary calcium score 2024 025 [facility], [address] [place], [address], 08/05/2024 09:44:47 Medication Orders lisinopri l 5 mg tablet 2024 025 [id number], [address] [facility], [place], [address], 07/26/2024 10:50:06 Patient TargetsNo targets recorded. Patient InstructionsNo instructions recorded. Reason for Referral None Reported. Problems Name Problem SNOMED Code Status Onset Date Resolution Date Notes Provider Name and Address Organization Details Recorded Time Psoriasi s 9265302 Active 2017 Not Available [facility] 20:23:59 Hyperten sive disorder 22992278 Completed 201712/28/2018 Luke Lovelace, DO [address] [place], [address], 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 2 14:01:11 Follicul itis 09350502 Active 2023 Luke Lovelace DO [address] [place] [address], [address], [facility] 4 12:05:12 Esophage al dysphagi a 72988922 Active 2023 Luke Lovelace DO [address] [place] [address], [address], [facility] 4 12:06:30 Allergic rhinitis 14371123 Active 2023 Luke Lovelace DO [address] [place] [address], [address], [facility] 4 12:07:46 Costal chondrit is 71993790 Active 2023 Luke Lovelace DO [address] [place] [address], [address], [facility] 4 12:09:00 Anemia 815148765 Active 2023 Luke Lovelace DO [address] [place] [address], [address], [facility] 4 12:10:59 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 11753982685 769753 Active 2023 Luke Lovelace DO [address] [place] [address], [address], [facility] 4 12:11:15 Upper esophage al web 08514839 Active 2023 Luke Lovelace DO [address] [place] [address], [address], [facility] 4 23:03:32 Gastroes ophageal reflux disease 783302447 Active 2023 FERMÍN VALLES [address] [place], [address], [facility] Internal [facility] 4 10:03:38 Gastro-e sophagea l reflux disease with esophagi tis 017837314 Active 2023 Luke Lovelace [address], [address], [facility] 4 16:09:02 Esophage al web 14040013 Active 2023 Luke Lovelace [address], [address], [facility] 4 16:10:03 Hyperten sive disorder 54571469 Active 2024 Luke Lovelace [address], [address], [facility] 5 10:43:38 Eczema 79694739 Active 2024 Luke Lovelace [address], [address], [facility] 5 10:52:27 Problem Notes None recorded. Procedures Surgical History Date Name Laterality Status Provider Name and Address Organization Details Recorded Time 05/01/20 Colonoscopy completed Luke Lovelace DO [address] [place] [address], [address], [facility] Internal [facility] 05/01/2023 17:22:35 Tonsillectomy completed Anne Viveros [facility] 09/08/2018 15:22:29 Imaging Results None recorded. Procedure Notes None recorded. Medical Equipment None Reported. Allergies Allergen ID Allergen Name Allergen Category Reaction Reaction Severity Criticality Documentation Date Start Date Code Code System Note Provider Name and Address Organization Details Recorded Time 2494 Substance with sulfonami de structure and antibacte rial mechanism of action (substanc e) medicatio n Not available Not available Not available 04/27/2018 37814 8003 SNOMED 2nd to G6PD Def. Anne Viveros [facility] 8 08:30:36 7749 atorvasta tin medicatio n myalgias (muscle pain) Not available Not available 07/21/2023 26551 RxNorm Luke YuAngelica Tellezgerardo, DO [address] [place], [address], [facility] 4 12:08:42 Medications Name Sig [...] Available Not Available Not Available Fluarix Quad [id number] (PF) 60 mcg (15 mcg x 4)/0.5 mL IM syringe 04/27 completed Not Available Not Available Not Available Fluarix Quad (PF) 60 mcg (15 mcg x 4)/0.5 mL IM syringe 07/05 completed Not Available Not Available Not Available Vitals Date Recorded Body height Body mass index (BMI) Body weight Heart rate Oxygen saturation Oxygen saturation in Arterial blood by Pulse oximetry Systolic blood pressure Diastolic blood pressure Provider Name and Address Organization Details Last Updated DateTime 5 179.07 cm 30.6 kg/m2 77349.9 5 g 78 /min 99 % 99 % 140 mm[Hg] 88 mm[Hg] [facility] 5 10:19:24 Social History Question Answer Notes LastModified by Organizat ion Details LastModified Time Tobacco Smoking Status Never Smoker Not Available [facility] 04/24/2020 03:36:24 What Is Your Level Of Alcohol Consumption? Occasional [id number] Information not available 04/24/2020 Are You Blind Or Do You Have Difficulty Seeing? No [id number] Information not available 04/24/2020 What Is Your Level Of Caffeine Consumption? Moderate [id number] Information not available 04/24/2020 How Much Tobacco Do You Chew? None [id number] Information not available 04/24/2020 Are You Currently Employed? Yes [id number] Information not available 04/24/2020 Are You Deaf Or Do You Have Serious Difficulty Hearing? No [id number] Information not available 04/24/2020 What Type Of Diet Are You Following? REGULAR [id number] Information not available 04/24/2020 Which Illicit Or Recreational Drugs Have You Used? 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 1 [id number] Information not available 04/24/2020 On Those Days That You Engage In Moderate To Strenuous Exercise, How Many Minutes, On Average, Do You Exercise? 30 [id number] Information not available 04/24/2020 Hard Of Hearing Or Deaf In One Or Both Ears? No Information not available 01/03/2022 Live Alone Or With Others? With Others [email or web address] Information not available 01/03/2022 What Was The Date Of Your Most Recent Tobacco Screening? 07/26/2024 [email or web address] Information not available 07/26/2024 How Many Children Do You Have? 2 [id number] Information not available 04/24/2020 Performs Monthly Self-breast Exam? No [email or web address] Information no t available 01/03/2022 Seat Belts Used Routinely Yes [email or web address] Information not available 01/03/2022 Are You Sexually Active? Yes [id number] Information not available 04/24/2020 Smoke Alarm In Home Yes [email or web address] Information not available 01/03/2022 Are You Passively Exposed To Smoke? Yes [email or web address] Information no t available 09/08/2018 How Much Tobacco Do You Smoke? No [id number] Information not available 04/24/2020 General Stress Level Low [email or web address] Information not available 01/03/2022 Do You Use Sunscreen Routinely? No [id number] Information not available 04/24/2020 How Many Years Have You Smoked Tobacco? 0 [id number] Information not available 04/24/2020 Do You Or Have You Ever Used Any Other Forms Of Tobacco Or Nicotine? No Information not available 01/03/2022 Sex: Unknown Functional Status Question Answer Note LastModified by Organizat ion Details LastModified Time Do you have difficulty walking or climbing stairs? No [id number] Information not available 04/24/2020 Are you able to walk? YESWOREST [id number] Information not available 04/24/2020 Do you have difficulty doing errands alone? No [id number] Information not available 04/24/2020 Are you able to care for yourself? Yes [id number] Information not available 04/24/2020 Do you have difficulty dressing or bathing? No [id number] Information not available 04/24/2020 What is your exercise level? Moderate [id number] Information not available 04/24/2020 Mental Status Question Answer Note LastModified by Organization D etails LastModified Time Do you have difficulty concentrating, remembering or making decisions? No [id number] Information no t available 04/24/2020 Family History [...] History Condition Response Coronary Artery Disease N Gout N Other N Kidney Stones N Blood Diseases N Blood Transfusion N Breast Cancer N Lung Disease N Depression N COPD [...] split virus, quadrivalent, preservative 8 completed Mercedes Gencarelle [facility] 07/21/2023 11:15:49 influenza, unspecified formulation 3 completed Luke Lovelace DO [address] [place] [address], [address], [facility] Internal [facility] 07/21/2023 11:19:37 Influenza, split virus, quadrivalent, preservative 9 completed Mercedes Gencarelle [facility] 07/21/2023 11:15:49 Tdap 0 completed Katie Tran [facility] 03/09/2020 12:00:43 Influenza, split virus, quadrivalent, preservative 0 completed Mercedes Gencarelle [facility] 07/21/2023 11:15:49 COVID-19, mRNA, LNP-S, PF, 100 mcg/0.5mL dose or 50 mcg/0.25mL dose 1 completed Mercedes Gencarelle [facility] 07/21/2023 11:15:49 COVID-19, mRNA, LNP-S, PF, 100 mcg/0.5mL dose or 50 mcg/0.25mL dose 1 completed Mercedes Gencarelle [facility] 07/21/2023 11:15:49 Past Encounters Encounter ID Performer Location Encounter Start Date Encounter Closed Date Diagnosis/Indication Diagnosis SNOMED-CT Code Diagnosis ICD10 Code Diagnosis Note [id number] Luke Lovelace DO [facility] [address] [place] [address],[place] [address] 07/26/2024 10:06:14 07/26/2024 11:49:12 [facility] [id number] E78.00 will need lab soon to get a check on his cholestero l after taking the atorvastat 10 mg as he did not get the lab yet Vitamin D deficiency 347 49928 E55.9 will k Depression screening 171 226738 Z13.31 negative Active or passive immunization 410660725 Z23 UTD Adult heal th examination 086199793 Z00.00 elevated bp was a major concern Hypertensive disorder 38 084008 I10 bp at ER was 161 / 130 but was not treated Health Concerns Section Related Observation LastModified by Organization Detai ls LastModified Time None Recorded Concern Status LastModified by Organization Details LastModified Time None Recorded Payers Encounter Date Sequence Insurance Name Policy Number Policy [employer] Covered Member ID [employer] Member ID Guarantor Name 07/26/2024 1 [facility] Suhail Loco [id number] Suhail Loco Notes Date Note Type Note Provider Name a ar Address Organization Details Recorded Time 07/26/2024 text/html here for physical but he has numerous issues was seen in ER last week for chest tightness and was eval and released Luke Lovelace, [address], [place], [address], [facility] 07/26/2024 10:51:16
[2024-08-12 08:13] LABS: MANUAL DIFF FLAG NO
[2024-08-12 08:28] LABS: Basophils Absolute Auto 0.1 X10*3/uL (0.0-0.2); Basophils Percent Auto 0.8 % (0-2); Eosinophils Absolute Auto 0.3 X10*3/uL (0.0-0.4); Eosinophils Percent Auto 4.1 % (0-4); Hematocrit 44.5 % (42.0-52.0); Imm Gran Abs Auto 0.03 X10*3/uL (0.00-0.03); Imm Gran Pct Auto 0.5 % (0.0-0.4); Lymphocytes Absolute Auto 1.7 X10*3/uL (1.2-4.9); Lymphocytes Percent Auto 26.8 % (20-40); Mean Corpuscular HGB Conc 33.7 g/dl (31.0-36.0); Mean Platelet Volume 10.1 fL (9.4-12.4); Monocytes Absolute Auto 0.7 X10*3/uL (0.1-1.2); Monocytes Percent Auto 11.8 % (2-11); Neutrophils Absolute Auto 3.5 x10*3/uL (2.0-8.3); Platelet Count 230 X10*3/uL (160-400); Red Cell Distribution Width 12.8 % (11.0-16.0); White Blood Count 6.3 X10*3/uL (4.8-10.8)
[2024-08-12 09:06] LABS: Alanine Aminotransferase 24 U/L (0-40); Albumin Level 4.2 g/dL (3.5-5.0); Anion Gap 11 (12-20); Aspartate Amino Transferase 29 U/L (5-37); Blood Urea Nitrogen 29 mg/dL (9-16); Calcium 9.3 mg/dL (8.4-10.2); Carbon Dioxide 27 mmol/L (22-29); Chloride 106 mmol/L (96-108); Cholesterol 197 mg/dL (<200); Estimated Glomerular Filt Rate > 60; Glucose Random 96 mg/dL (60-115); HDL Cholesterol 34 mg/dL (>40); LDL Cholesterol Calculated 142 mg/dL (<100); Magnesium 2.3 mg/dL (1.6-2.6); Potassium 4.5 mmol/L (3.3-5.1); Sodium 139 mmol/L (135-145); Total Protein 7.6 g/dL (6.5-8.0); Triglycerides 109 mg/dL (<150)
[2024-08-12 09:16] LABS: Prostate Specific Antigen 0.85 ng/mL (<0.05-4.0)
[2024-08-12 09:22] LABS: Vitamin D 25-OH Total 25.8 ng/mL (>30)
[2024-08-12 09:26] LABS: Bilirubin Total 0.5 mg/dL (0.0-1.0)
[2024-08-12 09:46] LABS: Alkaline Phosphatase 39 U/L (39-117)
== END 2024-08-12 08:01 | disposition home or self-care (01) ==
LOC: HO.LAB 08:00
PROVIDERS: PCP Internal Medicine; Visit Provider Internal Medicine
DX: Z00.00 Encounter for general adult medical examination without abnormal findings (principal); E78.00 Pure hypercholesterolemia, unspecified; E55.9 Vitamin D deficiency, unspecified; Z12.5 Encounter for screening for malignant neoplasm of prostate; I10 Essential (primary) hypertension
CPT/HCPCS: 36415; 80053; 80061; 82306; 83735; 84153; 85025

== ENCOUNTER 2024-11-23 14:13 | Outpatient (AMB) | payer OTHER, SELFPAY ==
--- OUTSIDE RECORDS SUMMARY | 2024-11-23 14:16 | XMS_ITS | Continuity of Care Document ---
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 Location Location Details Encounter Type Encounter Number Reason For Visit Attending Provider ADM Date DC Date Status Disposition Source [facility] Outpatient Encounter [id number] 06/10 [facility] [facility] Outpatient Encounter [id number] 06/27 [place] [facility] [place] [facility]
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
[2024-11-23 14:33] VITALS: BP 132/78; PULSE 75; BMI 29.6
== END 2024-11-23 15:16 | disposition home or self-care (01) ==
LOC: HO.HGI 14:13
PROVIDERS: PCP Internal Medicine; Visit Provider Nurse Practitioner Family
DX: R13.19 Other dysphagia (principal); K57.30 Diverticulosis of large intestine without perforation or abscess without bleeding; E78.2 Mixed hyperlipidemia
CPT/HCPCS: 99204

== ENCOUNTER 2025-02-17 07:23 | Outpatient (REF) | payer OTHER, SELFPAY ==
--- OUTSIDE RECORDS SUMMARY | 2024-06-27 06:37 | XMS_ITS | Continuity of Care Document ---
Author Name [facility] Organization [facility] Care Team Providers Care Hotel Operation Manager Name Role Phone [facility] Unavailable Unavailable Encounters Combined list of: 1) Encounters from [facility] facilities going backup to the last 18 months, not all VA inpatient encounters are included; 2) Encounters from the Department of [employer] facilities going backup to 280 months. Location Location Details Encounter Type Encounter Number Reason For Visit Attending Provider ADM Date DC Date Status Disposition Source [facility] Outpatient Encounter [id number] 06/10 [facility] [place] [facility] [place] Outpatient Encounter [id number] 06/27 [place] [facility] [place] [facility]
--- OUTSIDE RECORDS SUMMARY | 2025-02-17 07:25 | XMS_ITS | Clinical Summary ---
Author Organization [facility] Address [address] [place] [id number] Phone Care Team Providers Care Corncob Pipes Assembler Name Role Phone Luke Barrientos Primary Care Provider [phone] Allergies Active Allergy Reactions Criticality Noted Date [...] topic Medical Devices Not on file Insurance [facility] INSURANCE Care Teams Corncob Pipes Assembler Relationship Specialty Start Date End Date Luke Barrientos DO [email or web address] PCP - General Internal Medicine 05/07/21 Additional Source Comments The information contained in this document represents components of the legal health record. It is not the complete legal health record.[facility]
[2025-02-17 07:43] LABS: MANUAL DIFF FLAG NO
[2025-02-17 08:45] LABS: Hematocrit 45.5 % (42.0-52.0); Hemoglobin 15.2 g/dl (14.0-18.0); Imm Gran Abs Auto 0.05 X10*3/uL (0.00-0.03); Imm Gran Pct Auto 0.7 % (0.0-0.4); Lymphocytes Absolute Auto 2.0 X10*3/uL (1.2-4.9); Mean Corpuscular HGB Conc 33.4 g/dl (31.0-36.0); Mean Corpuscular Hemoglobin 29.7 pg (27.0-33.0); Mean Corpuscular Volume 89.0 fL (80.0-98.0); NRBC Abs Auto 0.000 X10*3/uL (0.0-0.012); NRBC Pct Auto 0.0 /100WBC (0.0-0.2); Platelet Count 215 X10*3/uL (160-400); Red Blood Count 5.11 X10*6/uL (4.60-5.80); White Blood Count 7.5 X10*3/uL (4.8-10.8)
[2025-02-17 09:28] LABS: Alanine Aminotransferase 29 U/L (0-40); Albumin Level 4.5 g/dL (3.5-5.0); Alkaline Phosphatase 32 U/L (39-117); Anion Gap 11 (12-20); Aspartate Amino Transferase 23 U/L (5-37); Blood Urea Nitrogen 22 mg/dL (9-16); Calcium 9.4 mg/dL (8.4-10.2); Carbon Dioxide 29 mmol/L (22-29); Chloride 106 mmol/L (96-108); Cholesterol 226 mg/dL (<200); Estimated Glomerular Filt Rate > 60; HDL Cholesterol 36 mg/dL (>40); Potassium 4.5 mmol/L (3.3-5.1); Sodium 141 mmol/L (135-145); Total Protein 7.2 g/dL (6.5-8.0); Triglycerides 146 mg/dL (<150)
[2025-02-17 09:37] LABS: Prostate Specific Antigen 0.81 ng/mL (<0.05-4.0)
== END 2025-02-17 07:24 | disposition home or self-care (01) ==
LOC: HO.LAB 07:23
PROVIDERS: PCP Internal Medicine; Visit Provider Internal Medicine
DX: Z12.5 Encounter for screening for malignant neoplasm of prostate (principal); I10 Essential (primary) hypertension; E78.00 Pure hypercholesterolemia, unspecified; K21.9 Gastro-esophageal reflux disease without esophagitis
CPT/HCPCS: 36415; 80053; 80061; 84153; 85025

== ENCOUNTER 2025-02-24 11:16 | Day surgery (SDC) | payer OTHER, SELFPAY ==
--- OUTSIDE RECORDS SUMMARY | 2024-06-27 06:37 | XMS_ITS | Continuity of Care Document ---
Author Name [facility] Organization [facility] Care Team Providers Care Cat Skinner Name Role Phone [facility] Unavailable Unavailable Encounters Combined list of: 1) Encounters from [facility] facilities going backup to the last 18 months, not all VA inpatient encounters are included; 2) Encounters from the Department of [employer] facilities going backup to 280 months. Location Location Details Encounter Type Encounter Number Reason For Visit Attending Provider ADM Date DC Date Status Disposition Source [facility] [place] Outpatient Encounter [id number] 06/10 [facility] [place] [facility] [place] Outpatient Encounter [id number] 06/27 [place] [facility] [place] [facility]
--- OUTSIDE RECORDS SUMMARY | 2025-02-02 13:19 | XMS_ITS | Clinical Summary ---
Author Organization [facility] Address [address] [place] [id number] Phone Care Team Providers Care Scientific Systems Analyst Name Role Phone Luke Barrientos Primary Care Provider [phone] Allergies Active Allergy Reactions Criticality Noted Date Comments Sulfa (Sulfonamide Antibiotics) 04/22 Tramadol 04/12/2024 Medications atorvastatin (LIPITOR) 10 MG tablet atorvastatin 10 mg tablet Active sildenafiL (VIAGRA) 50 mg tablet sildenafil 50 mg tablet TAKE 1 TABLET BY MOUTH EVERY DAY FOR 30 DAYS Active omeprazole (PRILOSEC) 20 MG capsule Take 1 capsule by mouth every morning. Active Active Problems No known active problems Social History Tobacco Use Types Packs/Day Years Used Date Smoking Tobacco: Never Smokeless Tobacco: Never Tobacco Cessation:Counseling Given: Not Answered Alcohol Use Standard Drinks/Week Comments Not Currently 0 (1 standard drink = 0.6 oz pur e alcohol) Education Answer Date Recorded Are you interested in more education? Not on sincere e 10/18/2022 Are you concerned about learning? Not on file 10/18/2022 No 10/18/2022 No 10/18/2022 Digital Access Answer Date Recorded No 11/16/2022 No 11/16/2022 Reliable internet access at home? Not on file 11/16/2022 Device with a working camera? Not on file Sex and Gender Information Value Date Recorded Sex Assigned at Not on file Legal Sex Male 9:50 AM EDT Gender Identity Not on file Sexual Orientation Not on file Last Filed Vital Signs Vital Sign Reading Time Taken Comments Blood Pressure 136/92 04/27/2024 10:09 AM EST Pulse 75 04/27/2024 10:09 AM EST Temperature 36.8 C (98.3 F) 04/12/2024 11:51 AM EDT Respiratory Rate 18 04/27/2024 10:09 AM EST Oxygen Saturation 98% 04/27/2024 10:09 AM EST Inhaled Oxygen Concentration - - Weight 99.8 kg (220 lb) 04/27/2024 10:09 AM EST Height 182.9 cm (6') 04/27/2024 10:09 AM EST Body Mass Index 29.84 04/27/2024 10:09 AM EST Plan of Treatment Health Maintenance Due Date Last Done Comments DEPRESSION SCREENING 1979 HEPATITIS C SCREENING 1985 HIV ONE-TIME SCREENING (18-6 5 YEARS) 1985 SCREENING FOR DIABETES 2002 COLOGUARD 2012 COLONOSCOPY 2012 COLORECTAL CANCER SCREENING 2012 FIT TEST 2012 FOBT 2012 SIGMOIDOSCOPY 2012 VIRTUAL COLONOSCOPY 2012 PNEUMOCOCCAL VACCINES (50+ years) (1 of 1 - PCV) 2017 ZOSTER VACCINES (1 of 2) 2017 COVID-19 VACCINE (4 - 2023-2 5 season) 2024 07/04/2021, 11/12/2020, 10/14/2020 LIPID PANEL 09/15/2028 09/16/2023, 01/24/2022 Adult Td,Tdap Booster 03/08/2030 03/08/2020 SMOKING STATUS SCREENING (On ce After 26 Yrs) Completed 04/27/2024 HEPATITIS A VACCINES Aged Out No long er eligible based on patient's age to complete this topic HIB VACCINES Aged Out No longer eligi ble based on patient's age to complete this topic MENINGOCOCCAL VACCINES (ACWY) Aged Out No longer eligible based on patient's age to complete this topic MENINGOCOCCAL VACCINES (B) Aged Out N o longer eligible based on patient's age to complete this topic Medical Devices Not on file Insurance [facility] INSURANCE Care Teams Scientific Systems Analyst Relationship Specialty Start Date End Date Luke Barrientos DO [email or web address] PCP - General Internal Medicine 05/07/21 Additional Source Comments The information contained in this document represents components of the legal health record. It is not the complete legal health record.[facility]
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
[2025-02-24 11:45] VITALS: BMI 29.6
[2025-02-24 11:50] VITALS: BP 139/100; PULSE 78; RESP 18; TEMP 36.7; O2SAT 96
[2025-02-24] MEDS: Lactated Ringers 1,000 ML 100 ML IVCONT (11:58)
[2025-02-24 12:01] VITALS: BP 127/89
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
--- NOTE | 2025-02-24 13:00 | W.PM.OPN ---
Operative Note Operative Note Date of Service: 02/24/25 Narrative: FLEXIBLE TRANSORAL UPPER GASTROINTESTINAL ENDOSCOPY WITH BIOPSIES AND ESOPHAGEAL BALLOON DILATION Pre-op diagnosis: GERD, Dysphagia Post-op diagnosis: GERD, Dysphagia, Gastritis, Endoscopist:? Delmi Cagle MD Anesthesia:?MAC UPPER ENDOSCOPY Consent: Indications for the procedure and potential complications of bleeding, perforation, reaction to medications and missed diagnosis were discussed with the patient and informed consent was obtained. Instrument: Olympus GIF H 190 mid size upper endoscope Monitoring: Vital signs and clinical assessment, continuous EKG monitoring, Pulse oximetry, Carbon Dioxide monitoring and blood pressure monitoring were done throughout the procedure. Procedure: The patient was placed in the left lateral decubitis position and pre-procedure medications were administered and a bite block was placed. The endoscope was inserted into the mouth and advanced under direct vision to the third part of duodenum. A careful inspection was made as the upper endoscope was withdrawn including a retroflexed examination of the proximal stomach; Findings and interventions are described below. Findings: Larynx: Normal Esophagus: GE junction at 42 cms. Mildly tortuous esophagus without stricture or ring. Empiric balloon dilation of LES was performed with a 20 mm (60 F) CRE balloon for 60 seconds Empiric balloon dilation of UES was performed with a 18 mm (54 F) CRE balloon for 60 seconds No heme seen in the esophagus post dilation Biopsies were obtained from proximal, mid and distal esophagus to check for EOE Stomach: Moderate diffuse gastric erythema - biopsies were obtained from the gastric body and antrum. Grade 2 flap valve on retroflexed examination of the cardia. Duodenum: Normal bulb and descending duodenum Intervention: Biopsies as noted above Impression and Post Procedure Diagnosis: Endoscopy Findings: ESOPHAGUS: Mildly tortuous esophagus without stricture or ring. Biopsies were obtained to rule out eosinophilic esophagitis. Empiric balloon dilation of LES was performed to 20 mm (60 F) and UES to 18 mm (54 F) with a CRE balloon. STOMACH: Moderate diffuse gastritis DUODENUM: Normal Opening of diverticulum or web not seen in the hypo-pharynx Plan: Pt has a FU appointment on 03/29/25 with Monica Dailey NP. Above findings were reviewed with the patient and relevant handouts were given and the discharge area. Consider referral to ENT if pt is having persistent dysphagia after dilation BIOPSIES SHOWED: A. Stomach, antrum, biopsy: Gastric antral mucosa with reactive gastropathy; negative for Helicobacter pylori, intestinal metaplasia and dysplasia. B. Stomach, body, biopsy: Gastric body mucosa within normal limits; negative for Helicobacter pylori, intestinal metaplasia and dysplasia. C. Esophagus, distal, biopsy: Squamous mucosa within normal limits; negative for inflammation (including intraepithelial eosinophils), fungal organisms, intestinal metaplasia and dysplasia. D. Esophagus, mid, biopsy: Squamous mucosa within normal limits; negative for inflammation (including intraepithelial eosinophils), fungal organisms, intestinal metaplasia and dysplasia. E. Esophagus, proximal, biopsy: Squamous mucosa within normal limits; negative for inflammation (including intraepithelial eosinophils), fungal organisms, intestinal metaplasia and dysplasia Pt called and biopsy results were reviewed. He reported improvement in dysphagia since he started taking Omeprazole
[2025-02-24 13:02] VITALS: BP 118/70; PULSE 75; RESP 16; TEMP 36.1; O2SAT 98
[2025-02-24 13:16] VITALS: BP 118/70; PULSE 75; RESP 16; O2SAT 97
[2025-02-24 13:29] VITALS: BP 121/88; PULSE 68; RESP 16; O2SAT 98
[2025-02-24 13:39] VITALS: BP 139/98; PULSE 73; RESP 18; TEMP 36.5; O2SAT 98
== END 2025-02-24 13:58 | disposition home or self-care (01) ==
PROVIDERS: PCP Internal Medicine; Visit Provider Internal Medicine Gastroenterology
PROC: 0DJ08ZZ Inspection of Upper Intestinal Tract, Via Natural or Artificial Opening Endoscopic (ICD-10-PCS; CPT 43235; principal; 2025-02-24 12:30)
DX: R13.10 Dysphagia, unspecified (principal); K21.9 Gastro-esophageal reflux disease without esophagitis; K22.89 Other specified disease of esophagus; K29.60 Other gastritis without bleeding; D75.A Glucose-6-phosphate dehydrogenase (G6PD) deficiency without anemia; E78.00 Pure hypercholesterolemia, unspecified; K57.30 Diverticulosis of large intestine without perforation or abscess without bleeding; L40.9 Psoriasis, unspecified; M19.90 Unspecified osteoarthritis, unspecified site; G47.33 Obstructive sleep apnea (adult) (pediatric); Z79.899 Other long term (current) drug therapy; Z79.1 Long term (current) use of non-steroidal anti-inflammatories (NSAID); Z88.5 Allergy status to narcotic agent; Z88.6 Allergy status to analgesic agent
CPT/HCPCS: 43249; 43239; 88305; 88313; 88342; C1726; J2003; J2704

== ENCOUNTER → 2025-02-24 11:16 | Outpatient (BNV) | payer OTHER, SELFPAY | PROVIDERS: PCP Internal Medicine; Visit Provider Internal Medicine Gastroenterology | DX: K22.89 Other specified disease of esophagus (principal); K29.70 Gastritis, unspecified, without bleeding; K21.9 Gastro-esophageal reflux disease without esophagitis; R13.10 Dysphagia, unspecified | CPT/HCPCS: 43239; 43249 ==

== ENCOUNTER 2025-03-29 14:39 | Outpatient (AMB) | payer OTHER, SELFPAY ==
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
[2025-03-29 14:45] VITALS: BP 118/72; PULSE 79; O2SAT 99; BMI 28.6
== END 2025-03-29 15:27 | disposition home or self-care (01) ==
LOC: HO.HGI 14:40
PROVIDERS: PCP Internal Medicine; Visit Provider Nurse Practitioner Family
DX: K21.9 Gastro-esophageal reflux disease without esophagitis (principal); D12.6 Benign neoplasm of colon, unspecified; R13.19 Other dysphagia
CPT/HCPCS: 99213

== ENCOUNTER 2025-06-02 14:52 | Outpatient (AMB) | payer OTHER, SELFPAY ==
[2025-06-02 14:55] VITALS: BP 115/80; PULSE 83; BMI 28.2
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
--- OUTSIDE RECORDS SUMMARY | 2025-06-02 19:56 | XMS_ITS | Clinical Summary ---
Author Organization [facility] Address [address] [place] [id number] Phone Care Team Providers Care Coronary Clinical Specialist Name Role Phone Luke Barrientos DO Primary Care Provider [phone] Luke Barrientos DO Unavailable Allergies Active Allergy Reactions Criticality Noted Date [...] Active Active Problems No known active problems Encounters Date Type Department Care Team Description 04/26/2025 12:30 PM EST Nurse Only [facility] [address] [address] Cecily Humphries, PALuisC Encounter for occupational health assessment (Primary Dx) from Last 3 Months Social History Tobacco Use Types Packs/Day Years [...] HEPATITIS C SCREENING 1985 HIV ONE-TIME SCREENING (18-65 YEARS) 1985 SCREENING FOR DIABETES 2002 COLOGUARD 2012 COLONOSCOPY 2012 COLORECTAL CANCER SCREENING 2012 FIT TEST 2012 FOBT 2012 SIGMOIDOSCOPY 2012 VIRTUAL COLONOSCOPY 2012 PNEUMOCOCCAL VACCINES (50+ years) (1 of 1 - PCV) 2017 ZOSTER VACCINES (1 of 2) 2017 COVID-19 VACCINE (4 - 2024- season) 2025 07/04/2021, 11/12/2020, 10/14/2020 LIPID PANEL 09/15/2028 09/16/2023, 01/24/2022 Adult Td,Tdap Booster 03/08/2030 03/08/2020 RSV VACCINE (1 - 1-dose 75+ series) 2042 SMOKING STATUS SCREENING (Once After 26 Yrs) Completed 04/27/2024 INFLUENZA VACCINE Completed 03/15/2025, , 04/02/2023, Additional history exists HEPATITIS A VACCINES Aged Out No long [...] topic Medical Devices Not on file Insurance POS EPO POS EPO POS EPO [address] [place], [place] [id number] POS EPO POS EPO [facility] POS EPO [employer] Care Teams Coronary Clinical Specialist Relationship Specialty Start Date End Date Luke Barrientos DO PCP - General Internal Medicine 05/07/21 Luke Barrientos DO [address] [place] [address] [email or web address] Insurance Assigned Provider 05/06/25 Additional Source Comments The information contained in this document represents components of the legal health record. It is not the complete legal health record.[facility]
--- OUTSIDE RECORDS SUMMARY | 2025-06-02 19:56 | XMS_ITS | Data Portability ---
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) MDM MODERATE MUST MEET 2 OUT OF [...] EACH ELEMENT THAT IS COVERED Not available 11/04/2024 16:13:11 Plan of Treatment Reminders Order Date Submit Date Provider Last Modified By Organization Details Last Modified Time Details Appointments ANNUAL EXAM 2025 09:30A M DR LOVELACE Not available Not available Not available Lab CMP, serum or plasma 2024 025 [facility], [address] [place] [address], [id number], 02/20/2025 11:08:12 PSA, serum or plasma 2024 025 [facility], [address] [place] [address], [place], [address], 11/04/2024 16:22:35 CBC w/ auto diff 2024 025 [facility], [address] [place] [address], [address], 11/04/2024 16:22:35 lipid panel, blood 2024 025 [facility], [address] [place] [address], [address], 02/20/2025 11:08:12 magnesium , serum or plasma 2024 025 [facility], [address] [place] [address], [address], 07/26/2024 10:51:23 vitamin D, 25-hydrox y, total, serum 2024 025 [facility], [address] [place] [address], [address], 07/26/2024 10:51:23 lipid panel, blood 2024 025 [facility], [address] [place] [address], [address], 07/26/2024 10:51:23 CMP, serum or plasma 2024 025 [facility], [address] [place] [address], [address], 08/15/2024 11:23:36 CBC w/ auto diff 2024 025 [facility], [address] [place] [address], [id number], 07/26/2024 10:51:23 PSA, serum or plasma 2024 025 [facility], [address] [place] [address], [address], 07/26/2024 10:51:23 CMP, serum or plasma 2023 024 [facility], [address] [place] [address], [address], 09/16/2023 11:08:45 CBC w/ auto diff 2023 024 [facility], [address] [place] [address], [address], 07/21/2023 12:15:35 PSA, serum or plasma 2023 024 [facility], [address] [place] [address], [address], 07/21/2023 12:15:36 lipid panel, blood 2023 024 [facility], [address] [place] [address], [address], 07/21/2023 12:15:36 CMP, serum or plasma 2021 022 [facility], [address] [place] [address], [address], 01/27/2022 11:36:42 lipid panel, blood 2021 022 [facility], [address] [place] [address], [place], [address], 01/27/2022 11:36:42 CBC w/ auto diff 2021 [facility], [address] [place] [address], [place], [address], 01/27/2022 11:36:42 PSA, serum or plasma 2021 [facility], [address] [place] [address], [address], 01/27/2022 11:36:42 vitamin D, 25-hydrox y, total, serum 2021 [facility], [address] [place] [address], [address], 01/27/2022 11:36:42 Referral gastroent erologist referral 2024 025 jamee Cagle MD, [address] [place] [address] [place], [address], 11/18/2024 10:52:03 gastroent erologist referral 2023 024 jamee Cagle MD, [address] [place] [address] [place], [address], 09/30/2023 08:10:53 Procedures None recorded. Surgeries None recorded. Imaging CT, heart, w/o contrast, w/ coronary calcium score 2024 025 [facility], [address] [facility], [place], [address], 08/05/2024 09:44:47 RF, upper gastroint estinal tract, w/ contrast PO 2023 024 [facility], [address] [place] [address], [place], [address], 07/28/2023 10:35:42 Medication Orders lisinopri l [address] mg tablet [address] [facility] #[id number], [address] [place], [address], 07/26/2024 10:50:06 meloxicam 15 mg tablet 2023 024 [email or web address] [facility]acy #0373, [address] [place], [address], 07/26/2024 10:17:23 mupirocin 2 % topical ointment [address] [facility]0373, [address] [place], [address], 07/21/2023 12:14:15 sildenafi l 50 mg tablet [address] [facility] #0373, [address] [place], [address], 01/03/2022 14:05:38 doxycycli ne hyclate 100 mg tablet 2021 022 [facility] #0373, [address] [place], [address], 07/21/2023 11:23:10 Patient TargetsNo targets recorded. 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 [email or web address] [facility] (Medical Records) [address] [facility], [place], [address], 09/18/2023 10:03:11 08/12/19 25 08/11/2024 CT, heart , w/o contr ast, w/ coron francisco javier calci um score No observ ation record ed. Not Available 2024 10:29:04 Result Notes None recorded. Problems Name Problem SNOMED Code Status Onset Date Resolution Date Notes Provider Name and Address Organization Details Recorded Time Psoriasi s 0183163 Active 2017 Not Available [facility] 20:23:59 Hyperten sive disorder 65161094 Completed 201712/28/2018 Luke Lovelace DO [address] [place], [address], [facility] 5 10:43:38 Hypercho lesterol emia 75775332 Active 2017 Not Available [facility] 20:23:59 Sleep apnea 89220478 Active 2017 Not Available [facility] 20:23:59 Vitamin D deficien cy 26728941 Active 2017 Not Available [facility] 20:23:59 Elevated blood-pr essure reading without diagnosi s of hyperten ivan 463833099 Active 2018 Not Available [facility] 20:23:59 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 2018 Not Available [facility] 20:23:59 Primary erectile dysfunct ion 369947895 Active 2021 Luke Lovelace DO [address] [place], [address], [facility] 2 14:01:11 Follicul itis 24487174 Active 2023 Luke Lovelace, DO [address] [place] [address], [address], [facility] 4 12:05:12 Esophage al dysphagi a 68474472 Active 2023 Luke Lovelace, DO [address] [place] [address], [address], [facility] 4 12:06:30 Allergic rhinitis 34235023 Active 2023 Luke Lovelace DO [address] [place] [address], [address], [facility] 4 12:07:46 Costal chondrit is 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 Active 2023 Luke Lovelace DO [address] [place] [address], [address], [facility] 4 12:09:00 Anemia 790300773 Active 2023 Luke Lovelace DO [address] [place] [address], [address], [facility] 4 12:10:59 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 01110383662 818100 Active 2023 Luke Lovelace DO [address] [place] [address], [address], [facility] 4 12:11:15 Upper esophage al web 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 Active 2023 Luke Lovelace DO [address] [place] [address], [address], [facility] 4 23:03:32 Gastroes ophageal reflux disease 288633219 Active 2023 FERMÍN VALLES [address] [place] [address], [address], [facility] 4 10:03:38 Gastro-e sophagea l reflux disease with esophagi tis 992136435 Active 2023 Luke Ambriz Floyd DO [address] [place] [address], [address], [facility] Internal [facility] 4 16:09:02 Esophage al web 04809790 Active 2023 Luke Ambriz DO Floyd [address] [place] [address], [address], [facility] 4 16:10:03 Hyperten sive disorder 07490221 Active 2024 Luke Ambriz Floyd [address], [address], [facility] 5 10:43:38 Eczema 41064710 Active 2024 Luke Lovelace [address], [address], [facility] 5 10:52:27 Problem Notes None recorded. Procedures Surgical History Date Name Laterality Status Provider Name and Address Organization Details Recorded Time 05/01/20 Colonoscopy completed Luke Pb Lovelace [address], [address], [facility] 05/01/2023 17:22:35 Tonsillectomy completed Anne Viveros [facility] 09/08/2018 15:22:29 Imaging Results None recorded. Procedure [...] Not available Not available Not available 04/27/2018 77609 8003 SNOMED 2nd to G6PD [facility]. [facility] 8 08:30:36 7749 atorvasta tin medicatio n myalgias (muscle pain) Not available Not available 07/21/2023 86602 RxNorm Luke Lovelace DO [address] [place], [address], [facility] 4 12:08:42 Medications Name Sig [...] TAKE 1 CAPSULE BY MOUTH EVERY DAY active Not Available [...] Available Not Available Not Available Fluarix Quad 1086-2865 (PF) 60 mcg (15 mcg x 4)/0.5 mL IM syringe 04/27 completed Not Available Not Available Not Available Fluarix Quad (PF) 60 mcg (15 mcg x 4)/0.5 mL IM syringe 07/05 completed Not Available Not Available Not Available Vitals Date Recorded Body height Body mass index (BMI) Body weight Heart rate Oxygen saturation Systolic And Diastolic Provider Name and Address Organization Details Last Updated DateTime 4 179.07 cm 30 kg/m2 39741.5 8 g 85 /min 98 % 122/88 mm[Hg] Luke Lovelace, DO [address] [place], [address] 4 11:21:16 Date Recorded Body height Body mass index (BMI) Body weight Heart rate Oxygen saturation Systolic And Diastolic Provider Name and Address Organization Details Last Updated DateTime 5 179.07 cm 30.6 kg/m2 02925.9 5 g 78 /min 99 % 140/88 mm[Hg] Troy Puentes [facility] 5 10:19:24 Date Recorded Body height Body mass index (BMI) Body weight Heart rate Oxygen saturation Systolic And Diastolic Provider Name and Address Organization Details Last Updated DateTime 4 179.07 cm 30.1 kg/m2 59192.1 7 g 80 /min 97 % 130/80 mm[Hg] Josey Jolly [facility] 4 15:28:50 Date Recorded Body height Body mass index (BMI) Body weight Heart rate Oxygen saturation Systolic And Diastolic Provider Name and Address Organization Details Last Updated DateTime 5 179.07 cm 29.7 kg/m2 89622.4 g 81 /min 98 % 118/68 mm[Hg] Josey Jolly [facility] 5 15:28:58 Date Recorded Body weight Body mass index (BMI) Body height Heart rate Oxygen saturation Systolic And Diastolic Provider Name and Address Organization Details Last Updated DateTime 2 01328.3 8 g 30.1 kg/m2 179.07 cm 83 /min 98 % 144/82 mm[Hg] Luke Lovelace, DO [address] [place], [address], [facility] 2 13:30:58 Social History Question Answer Notes LastModified by Organizat ion Details LastModified Time Tobacco Smoking Status Never Smoker Not Available [employer] 04/24/2020 03:36:24 Are You Blind Or Do You Have Difficulty Seeing? No [id number] Information not available 04/24/2020 What Is Your Level Of Caffeine Consumption? Moderate [id number] Information not available 04/24/2020 How Much Tobacco Do You Chew? None [id number] Information not available 04/24/2020 Are You Deaf Or Do You Have Serious Difficulty Hearing? No [id number] Information not available 04/24/2020 What Type Of Diet Are You Following? REGULAR [id number] Information not available 04/24/2020 Which Illicit Or Recreational Drugs Have You Used? Never [id number] Information not available 04/24/2020 Education 2 Year College [email or web address] Information not available 01/03/2022 How Many Days Of Moderate To Strenuous Exercise, Like A Brisk Walk, Did You Do In The Last 7 Days? 1 [id number] Information not available 04/24/2020 On Those Days That You Engage In Moderate To Strenuous Exercise, How Many Minutes, On Average, Do You Exercise? 30 [id number] Information not available 04/24/2020 Hard Of Hearing Or Deaf In One Or Both Ears? No [email or web address] Information not available 01/03/2022 Live Alone Or With Others? With Others [email or web address] Information not available 01/03/2022 What Was The Date Of Your Most Recent Tobacco Screening? 11/04/2024 [email or web address] Information not available 11/04/2024 How Many Children Do You Have? 2 [id number] Information not available 04/24/2020 Performs Monthly Self-breast Exam? No [email or web address] Information no t available 01/03/2022 Seat Belts Used Routinely Yes [email or web address] Information not available 01/03/2022 Are You Sexually Active? Yes [id number] Information not available 04/24/2020 Smoke Alarm In Home Yes [email or web address] Information not available 01/03/2022 Are You Passively Exposed To Smoke? Yes Information no t available 09/08/2018 How Much Tobacco Do You Smoke? No [id number] Information not available 04/24/2020 General Stress Level Low [email or web address] Information not available 01/03/2022 Do You Use Sunscreen Routinely? No [id number] Information not available 04/24/2020 How Many Years Have You Smoked Tobacco? 0 [id number] Information not available 04/24/2020 Do You Have Difficulty Walking Or Climbing Stairs? No [id number] Information not available 04/24/2020 Sex: Unknown Functional Status Question Answer Note LastModified by Organizat ion Details LastModified Time Do you or have you ever used any other forms of tobacco or nicotine? No Information not available 01/03/2022 What is your level of alcohol consumption? Occasional [id number] Information not available 04/24/2020 Are you currently employed? Yes [id number] Information not available 04/24/2020 Are you able to walk independently without assistance or assistive devices? YESWOREST [id number] Information not available 04/24/2020 Do you have difficulty doing errands alone? No [id number] Information not available 04/24/2020 Are you able to care for yourself independently? 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 No [id number] Information not available 04/24/2020 What is your exercise level? Moderate [id number] Information not available 04/24/2020 Mental Status Question Answer Note LastModified by Organization D etails LastModified Time Do you have difficulty concentrating, remembering or making decisions? No [id number] Information no t available 04/24/2020 Family History Relationship Description Onset Age of this Age Resolved Age Notes LastModified by Organization Details LastModified Time Mother Arthritis [email or web address] Not availabl e 09/08/2018 15:21:55 Mother Migraine tbalicki Not available 09/08/2018 15:21:55 Brother Obese tbalicki Not available 09/08/2018 15:21:56 Brother Sleep disorder tbalicki Not available 2018 15:21:56 Brother Harmful pattern of use of alcohol tbalicki Not available 2018 15:21:56 Brother Obesity [...] split virus, quadrivalent, preservative 8 completed Mercedes Quinteroscarecasie romero [facility] 07/21/2023 11:15:49 influenza, unspecified formulation 3 completed Luke Lovelace, DO [address] [place] [address], [place], [address], [facility] 07/21/2023 11:19:37 influenza, unspecified formulation 5 completed Melania romero [facility] 03/17/2025 15:20:42 Influenza, split virus, quadrivalent, preservative 9 completed Mercedes Gencarelle nick [facility] 07/21/2023 11:15:49 Tdap 0 completed Katie Tran nick [facility] 03/09/2020 12:00:43 Influenza, split virus, quadrivalent, preservative 0 completed Mercedes Quinteroscarelle [facility] 07/21/2023 11:15:49 COVID-19, mRNA, LNP-S, PF, 100 mcg/0.5mL dose or 50 mcg/0.25mL dose 1 completed Mercedes Quinteroscarelle nick [facility] 07/21/2023 11:15:49 COVID-19, mRNA, LNP-S, PF, 100 mcg/0.5mL dose or 50 mcg/0.25mL dose 1 completed Mercedes Gencarelle [facility] 07/21/2023 11:15:49 Past Encounters Encounter ID Performer Location Encounter Start Date Encounter Closed Date Diagnosis/Indication Diagnosis SNOMED-CT Code Diagnosis ICD10 Code Diagnosis IMO Codes Diagnosis Note [id number] Luke Lovelace DO [facility] [address] [place] [address],[place] [address] 04/27/2018 14:49:19 04/27/2018 15:57:42 Hypercholesterolemia 11377493 E78.00 will review and consider statin Vitamin D deficiency 347 64817 E55.9 Lumbago with sciatica 20 5863107 M54.41 Family his tory of cancer of colon 494057471 Z80.0 [id number] Lauren Quan NP, S [facility] [address] [facility],[place] [address] 09/08/2018 15:14:17 09/08/2018 16:30:26 Adult health examination 952405807 Z00.01 Active or passive immunization 372406180 Z23 Vitamin D deficiency 347 32529 E55.9 recheck Hypercholesterolemia 136 31589 E78.00 cont. lipitor 10 mg Hypertensive disorder 38 834705 I10 stable Psoriasis 0015743 L40.9 no current Pain of mu ltiple joints 53774280 M25.50 Painless r ectal bleeding 113681301 K62.5 Sleep apnea 61976432 G47 .30 defers treatment [id number] Luke Lovelace [facility] [address] [facility],[place] [address] 09/20/2018 13:49:29 09/20/2018 15:30:41 Fatigue 30136498 R53.83 Pharyngitis 477405908 J0 2.9 [id number] Luke Lovelace [facility] [address] [facility],[place] [address] 12/28/2018 15:39:24 12/28/2018 16:25:15 Hypercholesterolemia 47385941 E78.00 will need lab soon to get a check on his cholestero l after taking the atorvastat Sleep apnea 24974250 G47 .30 that has been stable [id number] Luke Lovelace [facility] [address] [facility],[place] [address] 07/05/2019 15:51:24 07/05/2019 16:51:48 Hypercholesterolemia 13041530 E78.00 will need lab soon to get a check on his cholestero l after taking the atorvastat 10 mg Elevated blood-pressure reading without diagnosis of hypertension 877444755 R03.0 here and is doing great Psoriasis 2894329 L40.9 skin is doing ok except around the eyelid and ear canal Sleep apnea 19869251 G47 .30 that has been stable [id number] Luke Lovelace [facility] [address] [facility],[place] [address] 02/15/2020 14:53:16 02/15/2020 15:38:24 Elevated blood-pressure reading without diagnosis of hypertension 297980134 R03.0 here and is doing great and staying active no major issues Hypercholesterolemia 136 18589 E78.00 will need lab soon to get a check on his cholestero l after taking the atorvastat 10 mg as he did not get the lab yet [id number] Luke Lovelace [facility] [address] [place] [address] 09/03/2020 15:48:30 09/03/2020 16:44:55 Elevated blood-pressure reading without diagnosis of hypertension 590023939 R03.0 here and is doing great and staying active no major issues Hypercholesterolemia 136 58282 E78.00 will need lab soon to get a check on his cholestero l after taking the atorvastat 10 mg as he did not get the lab yet 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 Eczema 55383745 L30.9 otc maria luisa cream Strain of trapezius muscle 432657758 S46.811A will start doing some exercises and will have him slowly lift weight [id number] Luke Lovelace [facility] [address] [place] [address] 03/19/2021 08:16:03 03/19/2021 16:24:38 Elevated blood-pressure reading without diagnosis of hypertension 129374730 R03.0 here and is doing great and staying active no major issues Acute folliculitis 44673 7007 L73.9 [id number] Luke Lovelace [facility] [address] [place] [address] 01/03/2022 13:22:47 01/03/2022 14:35:15 Active or passive immunization 151741411 Z23 [facility] Adult heal th examination 795412305 Z00.01 had a small tick bite on right upper thighwe removed but need to treat 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 no change Primary er ectile dysfunction 587587464 N52.9 Tick bite 10257737 W57.X XXA [id number] Luke Lovelace [facility] [address] [place] [address] 07/21/2023 11:14:52 07/21/2023 12:16:48 Active or passive immunization 548239313 Z23 UTD Adult heal th examination 793256070 Z00.00 had a small tick bite on right upper thighwe removed but need to treat Anemia 230378969 D55.0 chk lab Folliculitis 04437835 L7 3.9 Esophageal dysphagia 408 59400 R13.19 noted increased sx has had for years Allergic rhinitis 707911 04 J30.9 flonase nasal Costal chondritis 768400 04 M94.0 will try for several weeks Myalgia ca used by statin 1825416305 1181742 T46.6X5A if cholest still up will try rosuvastat [id number] Luke Lovelace [facility] [address] [place] [address] 09/25/2023 15:06:16 09/25/2023 16:20:54 Esophageal dysphagia 40206690 R13.19 noted increased sx has had for years Gastroesop hageal reflux disease 044771720 K21.9 Hypercholesterolemia 136 36675 E78.00 will need lab soon to get a check on his cholestero l after taking the atorvastat 10 mg as he did not get the lab yet Gastro-eso phageal reflux disease with esophagitis 117521711 K21.00 History of Schatzkis ring 5983528572 5365533 Z87.19 Esophageal web 32203976 Q39.4 will be seeing ent [id number] Luke Lovelace [facility] [address] [place] [address] 07/26/2024 10:06:14 07/26/2024 11:49:12 Hypercholesterolemia 25836450 E78.00 will need lab soon to get a check on his cholestero l after taking the atorvastat 10 mg as he did not get the lab yet Vitamin D deficiency 347 21615 E55.9 will chk Depression screening 171 011716 Z13.31 negative Active or passive immunization 542895185 Z23 UTD Adult heal th examination 082271557 Z00.00 elevated bp was a major concern Hypertensive disorder 38 648786 I10 bp at ER was 161 / 130 but was not treated [id number] Luke Lovelace [facility] [address] [place] [address] 11/04/2024 15:06:35 11/04/2024 16:24:20 Hypercholesterolemia 71971821 E78.00 will need lab soon to get a check on his cholestero l after taking the atorvastat 10 mg as he did not get the lab yet Hypertensive disorder 38 [id number] I10 doing great on 5mg of lisinopril Gastroesop hageal reflux disease [id number] K21.9 will be continuing on the omeprazole Depression screening 171 499273 Z13.31 negative Allergic rhinitis [id number] J30.9 flonase nasal Upper esophageal web 112 37910 Q39.4 Health Concerns Section Related Observation LastModified by Organization Detai ls LastModified Time None Recorded Concern Status LastModified by Organization Details LastModified Time None Recorded Advance Directives Directive None Recorded Payers Insurance Date Sequence Insurance Name Policy Number Policy Fontenot Covered Member ID Fontenot Member ID Guarantor Name 11/01/2024 1 [facility] Suhail Loco [id number] Suhail Loco 01/30/2023 1 [facility] [place] [id number] Nikkie Loco [id number] Suhail Loco Notes Date Note Type Note Provider Name and Address Organization Details Recorded Time 01/04/20 22 text/htm l Annual WellnessReported by PatientSocial/Behavioral HistoryFor diet and nutrition, patient reportshealthy diet. For fracture risk, patient reportsno history of fractures,no recent explained fracture,no sudden unexplained fractures, andno previous musculoskeletal injuries. For physical activity, patient reportsexercises on a regular basis,recent increase in physical activity, andgood physical condition. For additional lifestyle factors, patient reportsno tobacco use,no alcohol intake, andstopped drinking alcohol.Mental Status:For depression risk, patient reportsnever feels sad, empty, or tearful,no loss of interest in activities,no significant changes in weight,no sleep disturbances or insomnia,no agitation,no loss of energy,no feelings of worthlessness or guilt,no thoughts of suicide,no history of depression, andno history of mood disorders.Functional AbilityFor hearing, patient reportsno loss of hearing. For vision, patient reportsno vision problems.ROS as noted in the HPI has had some [employer] disability things completed Luke Lovelace, [address], [place], [address], [facility] 01/03/2022 14:07:22 07/21/19 24 text/htm l Annual WellnessReported by PatientSocial/Behavioral HistoryFor diet and nutrition, patient reportshealthy diet. For fracture risk, patient reportsno history of fractures,no recent explained fracture,no sudden unexplained fractures, andno previous musculoskeletal injuries. For physical activity, patient reportsexercises on a regular basis,recent increase in physical activity, andgood physical condition. For additional lifestyle factors, patient reportsno tobacco use,no alcohol intake, andstopped drinking alcohol.Mental Status:For depression risk, patient reportsnever feels sad, empty, or tearful,no loss of interest in activities,no significant changes in weight,no sleep disturbances or insomnia,no agitation,no loss of energy,no feelings of worthlessness or guilt,no thoughts of suicide,no history of depression, andno history of mood disorders.Functional AbilityFor hearing, patient reportsno loss of hearing. 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 For severity, patient reportssymptoms are improvinganddoes not interfere with daily activities. For associated symptoms, patient reportsno dizziness,no lightheadedness,no chest pain,no shortness of breath,no palpitations,no edema,no calf muscle cramps,no blurred vision,no confusion,no headaches, andno fatigue. Care Management - Esophageal RefluxReported by PatientInterim HistoryFor symptoms, patient reportsasymptomatic,no difficulty swallowing,no pain swallowing, andno postprandial pain. For severity, patient reportsimproving. For associated symptoms, patient reportsno frequent coughing,no feeling of fullness/mass in throat,no hoarseness,no food getting stuck,no belching/burping,no nausea,no vomiting,not vomiting blood,no regurgitation,no shortness of breath,no chest pain,no heartburn,no difficulty swallowing,no pain when swallowing,no bad taste,no decreased appetite,no weight loss,no black/tarry stools,no fatigue, andno throat pain. Care Management - HyperlipidemiaReported by PatientHPIFor control, patient reportsusually well controlled,improving, andat goal. For complications, patient reportsno coronary artery disease,no heart attack,no cardiovascular disease,no pancreatitis, andno stroke.ROS as noted in the HPI discussion re stopping the omeprazolehe has tried last few months and is having an issue with recurrence of his gerd so he is back oncareful with diet by stopping etoh since jul Luke Lovelace, [address], [place], [address], [facility] 11/04/2024 16:21:27
== END 2025-06-02 15:37 | disposition home or self-care (01) ==
LOC: HO.HGI 14:53
PROVIDERS: PCP Internal Medicine; Visit Provider Nurse Practitioner Family
DX: K21.9 Gastro-esophageal reflux disease without esophagitis (principal)
CPT/HCPCS: 99213